=== PATIENT | female | born 1955 | race Caucasian/White ===

== ENCOUNTER 2017-08-11 07:42 | Day surgery (SDC) | payer MEDICARE, BC ==
[2017-08-11] MEDS ORDERED: fentaNYL 100 MCG/2 ML SDV ONE (08:10)
[2017-08-11] MEDS ORDERED: Midazolam 1 MG/ML 2 ML SDV ONE (08:10)
[2017-08-11] MEDS ORDERED: Propofol 200 MG/20 ML SDV ONE (08:10)
[2017-08-11] MEDS ORDERED: Lactated Ringers 1,000 ML IV SCH (08:15)
--- NOTE | 2017-08-11 11:38 | OR ---
DATE OF PROCEDURE: 08/11/2017 PREOPERATIVE DIAGNOSIS: Colon cancer screening. POSTOPERATIVE DIAGNOSIS: Diverticulosis. PROCEDURE: Colonoscopy to the cecum. SURGEON: Henry Stewart MD. ANESTHESIA: IV anesthesia with monitored anesthesia care. INDICATION: This 61-year-old white female is referred for a colonoscopy for colon cancer screening. Her last colonic exam sounds like a flexible sigmoidoscopy, done back in the . She has never had a full colonoscopy. I counseled her for the procedure , including the risks and alternatives, and she gave her informed consent to proceed. DESCRIPTION OF PROCEDURE: The patient was placed in a left lateral decubitus position. IV anesthesia was administered by the Anesthesia Service. Time-out was held. A rectal exam was performed, which was unremarkable. The flexible video Olympus colonoscope was introduced through her anus, up her rectum, and out her colon all the way to the cecum. En route, we saw a few scattered left-sided diverticula. There was no bleeding or inflammation associated with any of them. Once the cecum was reached, the scope was slowly withdrawn, examining the mucosa throughout. No additional mucosal abnormalities were noted. The scope was retroflexed in the rectum with the distal rectum appearing unremarkable. The scope was straightened and removed. She tolerated the procedure well. Henry Stewart MD /[id number] MTDD
[2017-08-11 11:39] VITALS: BP 155/90
== END 2017-08-11 11:45 | disposition home or self-care (01) ==
LOC: JP.SDS 07:42
PROVIDERS: ATTEND Surgery
DX: Z12.11 Encounter for screening for malignant neoplasm of colon (principal); K57.30 Diverticulosis of large intestine without perforation or abscess without bleeding; Z88.1 Allergy status to other antibiotic agents
CPT/HCPCS: G0121; J2250; J2704; J3010; J7120

== ENCOUNTER 2020-06-25 14:08 | Emergency (ER) | payer MEDICARE, BC ==
[2020-06-25 14:36] VITALS: BP 193/78; PULSE 81
--- NOTE | 2020-06-25 14:50 | EDM.PDOC ---
ED HPI GENERAL MEDICAL PROBLEM - General Chief Complaint: General Stated Complaint: UTI MEDICATION REACTION Time Seen by Provider: 06/25/20 14:45 Source of Information: Reports: Patient, Old Records, RN History Limitations: Reports: No Limitations - History of Present Illness INITIAL COMMENTS - FREE TEXT/NARRATIVE: 64 yo female was recently seen in the clinic and dx with a UTI and was prescribed cephalexin. She states that last night after taking this med she had some hallucinations and attributes these to this new med. She called the clinic and was told to come to the ER. Denies hallucination hx. Onset: Sudden Onset Date: 06/24/20 Duration: Hour(s):, Resolved Prior to Arrival Location: Reports: Head Quality: Reports: Other (no pain) Severity: Mild Improves with: Reports: Other (time) Worsens with: Reports: Other (? 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) - Related Data Allergies Allergy/AdvReac Type Severity Reaction Status Date / Time ciprofloxacin Allergy Cannot Verified 08/09/17 13:43 Remember minocycline Allergy Abdominal Verified 06/25/20 14:44 Cramps Home Meds: Home Meds Desvenlafaxine Succinate [Desvenlafaxine Succinate ER] 100 mg PO DAILY 08/09/17 [History] RX: Amphetamine/Dextroamphetamine [Adderall] 20 mg PO BID 08/09/17 [History] RX: Oxybutynin 5 mg PO BID 08/09/17 [History] RX: Pramipexole [Mirapex] 0.5 mg PO BEDTIME 08/09/17 [History] RX: Thyroid [[place] Thyroid] 30 mg PO DAILY 08/09/17 [History] RX: Zolpidem [Ambien] 10 mg PO BEDTIME 08/09/17 [History] traMADol HCl [Tramadol HCl] 50 mg PO Q6H PRN 11/07/19 [History] ARIPiprazole [Aripiprazole] 10 mg PO DAILY 06/25/20 [History] Losartan Potassium 100 mg PO DAILY 06/25/20 [History] Nebivolol [Bystolic] 5 mg PO DAILY 06/25/20 [History] Nitrofurantoin Monohyd/M-Cryst [Macrobid 100 mg Capsule] 100 mg PO Q12H #14 capsule 06/25/20 [Rx] RX: Venlafaxine [Effexor] 100 mg PO BID 06/25/20 [History] amLODIPine Besylate [Amlodipine Besylate] 10 mg PO BEDTIME 06/25/20 [History] risperiDONE 1 mg PO DAILY 06/25/20 [History] Past Medical History HEENT History: Reports: Impaired Vision Cardiovascular History: Reports: None Respiratory History: Reports: None Gastrointestinal History: Reports: Other (See Below) Other Gastrointestinal History: ulcers Genitourinary History: Reports: UTI, Recurrent 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 Musculoskeletal History: Reports: Back Pain, Chronic, Fracture Neurological History: Reports: None Psychiatric History: Reports: Depression, Psych Hospitalization(s), Schizophrenia Endocrine/Metabolic History: Reports: Hypothyroidism, Obesity/BMI 30+, Vitamin D Deficiency Hematologic History: Reports: B12 Deficiency Immunologic History: Reports: None Oncologic (Cancer) History: Reports: None - Infectious Disease History Infectious Disease History: Reports: Measles, Mumps - Past Surgical History HEENT Surgical History: Reports: None GI Surgical History: Reports: Bariatric Procedure, Cholecystectomy, Colonoscopy, EGD, Other (See Below) Other GI Surgeries/Procedures: hemorrhoidectomy Female Surgical History: Reports: Breast Implant Endocrine Surgical History: Reports: None Neurological Surgical History: Reports: Lumbar Spine Musculoskeletal Surgical History: Reports: Ganglion Cyst, Shoulder Surgery, Other (See Below) Other Musculoskeletal Surgeries/Procedures:: spinal fusion Dermatological Surgical History: Reports: None Social & Family History - Family History Family Medical History: Noncontributory - Caffeine Use Caffeine Use: Reports: None ED ROS GENERAL - Review of Systems Review Of Systems: See Below Constitutional: Reports: No Symptoms : Reports: Dysuria Skin: Reports: No Symptoms Neurological: Reports: No Symptoms Psychiatric: Reports: Hallucinations ED EXAM, GENERAL - Physical Exam Exam: See Below Exam Limited By: No Limitations General Appearance: Alert, WD/WN, No Apparent Distress Eye Exam: Bilateral Eye: Normal Inspection Ears: Normal External Exam, Normal Canal, Hearing Grossly Normal Ear Exam: Bilateral Ear: Auricle Normal, Canal Normal Nose: Normal Inspection, No Blood Throat/Mouth: Normal Inspection, Normal Lips, Normal Oropharynx, Normal Voice, No Airway Compromise Head: Atraumatic, Normocephalic Neck: Normal Inspection Respiratory/Chest: No Respiratory Distress, Lungs Clear, Normal Breath Sounds, No Accessory Muscle Use Cardiovascular: Regular Rate, Rhythm, No Edema Back Exam: No: CVA Tenderness (R), CVA Tenderness (L) Extremities: Normal Inspection Neurological: Alert, Oriented, CN II-XII Intact, Normal Cognition, No Motor/Sensory Deficits Psychiatric: Normal Affect, Normal Mood Skin Exam: Warm, Dry, Intact, Normal Color, No Rash Course - Vital Signs Last Recorded V/S: Last Vital Signs Temp 36.2 C 06/25/20 14:43 Pulse 81 06/25/20 14:43 Resp 16 06/25/20 14:43 BP 193/78 H 06/25/20 14:43 Pulse Ox 95 06/25/20 14:43 Departure - Departure Time of Disposition: 14:57 Disposition: Home, Self-Care 01 Condition: Good Clinical Impression: Medication side effect - Discharge Information *PRESCRIPTION DRUG MONITORING PROGRAM REVIEWED*: Not Applicable *COPY OF PRESCRIPTION DRUG MONITORING REPORT IN PATIENT MIN: Not Applicable Prescriptions: Nitrofurantoin Monohyd/M-Cryst [Macrobid 100 mg Capsule] 100 mg PO Q12H #14 capsule Referrals: Miriam Monte MD [Primary Care Provider] - Forms: ED Department Discharge Additional Instructions: Stop your cephalexin and substitute MacroBid. Recheck as needed. Sepsis Event Note (ED) - Evaluation Sepsis Screening Result: No Definite Risk - Focused Exam Vital Signs: Vital Signs Temp Pulse Resp BP Pulse Ox 06/25/20 14:43 36.2 C 81 16 193/78 H 95 06/25/20 14:35 36.2 C 81 16 193/78 H 95
== END 2020-06-25 15:12 | disposition home or self-care (01) ==
LOC: JP.ED 14:08
DX: T36.1X1A Poisoning by cephalosporins and other beta-lactam antibiotics, accidental (unintentional), initial encounter (principal); R44.3 Hallucinations, unspecified; F32.9 Major depressive disorder, single episode, unspecified; E03.9 Hypothyroidism, unspecified; E66.9 Obesity, unspecified; T36.8X5A Adverse effect of other systemic antibiotics, initial encounter; Z88.1 Allergy status to other antibiotic agents; Z68.41 Body mass index [BMI] 40.0-44.9, adult; Z79.899 Other long term (current) drug therapy
CPT/HCPCS: 99283

== ENCOUNTER 2020-10-17 06:26 | Day surgery (SDC) | payer MEDICARE, BC ==
[2020-10-17] MEDS ORDERED: fentaNYL 100 MCG/2 ML SDV ONE (07:26)
[2020-10-17] MEDS ORDERED: Propofol 200 MG/20 ML SDV ONE (07:26)
[2020-10-17] MEDS ORDERED: Midazolam 1 MG/ML 2 ML SDV ONE (07:27)
[2020-10-17] MEDS ORDERED: Dextrose 5%-Lactated Ringers 1,000 ML IV SCH (07:30)
[2020-10-17 09:10] VITALS: BP 129/55; PULSE 85
[2020-10-18 15:13] LABS: H. PYLORI BREATH TEST Negative (Negative)
--- NOTE | 2020-10-23 13:03 | OR ---
DATE OF PROCEDURE: 10/17/2020 SURGEON: Quinten Angel MD PREOPERATIVE DIAGNOSIS: Epigastric discomfort with history of Harvinder-en-Y gastric bypass. POSTOPERATIVE DIAGNOSIS: Essentially normal exam with only minimally scant gastric mucosa. OPERATIVE PROCEDURE: Upper gastrointestinal endoscopy with biopsies of gastric pouch for CLOtest. ANESTHESIA: IV sedation. INDICATION FOR PROCEDURE: A 65-year-old presenting with some ongoing epigastric discomfort and sense of some heartburn intermittently. Plan is to proceed with upper GI endoscopy with biopsies as indicated. The patient presently is on Pepcid 40 mg daily. She also has on her medication list amoxicillin and minocycline and was not sure whether or not this was associated with treatment of an H pylori infection at some point. At any rate, the patient is undergoing upper GI endoscopy with biopsies as indicated. Potential risks including bleeding and perforation were discussed, and the patient wishes to proceed. DETAILS OF PROCEDURE: The patient was taken to the operating room, placed in the left lateral decubitus position. IV sedation was administered. After which, the upper GI endoscope was passed orally through the length of the esophagus into the area of the gastrojejunostomy, and from there, roughly 20 cm into the Harvinder limb. Findings included normal esophagus and EG junction area. The patient had a very minimal amount of remaining gastric mucosa which was not significantly inflamed. There was no marginal ulcer present and no stricturing at the level of the gastrojejunostomy. The remaining portions of the Harvinder limb were unremarkable. There is no partial small bowel obstruction more distally. Biopsies were then obtained from the gastric mucosa and sent for CLOtest for H pylori. Minimal bleeding from biopsy sites was seen and the procedure was then concluded. The plan will be to have the patient continue on the Pepcid. We will obtain H pylori breath test as the amount of gastritis mucosa present at this location would often be a false- negative CLOtest, and it is possible she is having some gastritis in the bypassed portion of the stomach. She will be following up with Yessy Bishop DO in roughly 3 weeks. Quinten Angel MD /[id number]
== END 2020-10-17 10:00 | disposition home or self-care (01) ==
LOC: JP.SDS 06:26
PROVIDERS: ATTEND Surgery
DX: K31.89 Other diseases of stomach and duodenum (principal); G47.33 Obstructive sleep apnea (adult) (pediatric); Z98.84 Bariatric surgery status
CPT/HCPCS: 43239; 83013; 87081; J2250; J2704; J3010; J7121

== ENCOUNTER 2021-03-23 13:01 | Emergency (ER) | payer MEDICARE, BC ==
[2021-03-23 15:39] VITALS: BP 127/73; PULSE 66
--- NOTE | 2021-03-23 15:47 | EDM.PDOC ---
ED HPI GENERAL MEDICAL PROBLEM - General Chief Complaint: Genitourinary Problem Stated Complaint: UTI? Time Seen by Provider: 03/23/21 15:30 Source of Information: Reports: Patient, Old Records, RN History Limitations: Reports: No Limitations - History of Present Illness INITIAL COMMENTS - FREE TEXT/NARRATIVE: 65 yo female presents with chronic dizziness, not vertigo, that she has seen Dr. Bishop for. She has another appt with her this next . Sx's were a little worse today so came to the ER. Is currently being tx'd for a Klebsiella UTI with an antibiotic. Does not currently have dysuria. No bleeding or fever. Stools have been loose since taking the antibiotic. Onset: Gradual Duration: Week(s):, Chronic, Getting Worse Location: Reports: Head Quality: Reports: Other (no pain) Severity: Mild (dizziness) Improves with: Reports: Other (sitting or lying) - Related Data Allergies Allergy/AdvReac Type Severity Reaction Status Date / Time cephalexin Allergy Hallucinati Verified 03/23/21 15:00 ons ciprofloxacin Allergy Nausea Verified 03/23/21 15:00 minocycline Allergy Abdominal Verified 03/23/21 15:00 Cramps Home Meds: Home Meds Amphetamine/Dextroamphetamine [Adderall] 10 mg PO QID 08/09/17 [History] Thyroid [[place] Thyroid] 30 mg PO DAILY 08/09/17 [History] traMADol HCl [Tramadol HCl] 50 mg PO Q4H PRN 11/07/19 [History] Losartan Potassium 100 mg PO DAILY 06/25/20 [History] Nebivolol [Bystolic] 5 mg PO DAILY 06/25/20 [History] Nitrofurantoin Monohyd/M-Cryst [Macrobid 100 mg Capsule] 100 mg PO Q12H #14 capsule 06/25/20 [Rx] Venlafaxine [Effexor] 100 mg PO BID 06/25/20 [History] amLODIPine Besylate [Amlodipine Besylate] 10 mg PO BEDTIME 06/25/20 [History] risperiDONE 1 mg PO DAILY 06/25/20 [History] Calcium Carbonate/Vitamin D3 [Calcium 500 + Vit D 400] 0.5 tab PO DAILY 10/15/20 [History] Cyanocobalamin (Vitamin B-12) [B-12] 0.5 tab PO DAILY 10/15/20 [History] Magnesium Amino Acid Chelate [Magnesium] 100 mg PO BEDTIME 10/15/20 [History] Multivitamin 1 each PO BID 10/15/20 [History] Welsh-3/DHA/Epa/Fish Oil [Welsh 3 500 Softgel] 1,000 mg PO DAILY 10/15/20 [History] Sennosides/Docusate Sodium [Sennosides-Docusate Sodium] 1 tab PO BID 10/15/20 [History] Ubidecarenone [Co Q-10] 200 mg PO DAILY 10/15/20 [History] Minocycline [Minocin] 100 mg PO BID 10/17/20 [History] Eszopiclone [Lunesta] 3 mg PO BEDTIME 03/23/21 [History] Potassium Chloride 20 meq PO DAILY #10 tablet.er 03/23/21 [Rx] traZODone 150 mg PO BEDTIME 03/23/21 [History] Past Medical History HEENT History: Reports: Impaired Vision Cardiovascular History: Reports: Hypertension, SOB on Exertion Respiratory History: Reports: Sleep Apnea Gastrointestinal History: Reports: Chronic Diarrhea, GERD, Other (See Below) Other Gastrointestinal History: ulcers Genitourinary History: Reports: UTI, Recurrent 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 Musculoskeletal History: Reports: Back Pain, Chronic, Fracture Neurological History: Reports: None Psychiatric History: Reports: Anxiety, Depression, Psych Hospitalization(s), Schizophrenia Endocrine/Metabolic History: Reports: Hypothyroidism, Obesity/BMI 30+, Vitamin D Deficiency Hematologic History: Reports: B12 Deficiency Immunologic History: Reports: None Oncologic (Cancer) History: Reports: None Dermatologic History: Reports: None - Infectious Disease History Infectious Disease History: Reports: Chicken Pox, Measles, Mumps - Past Surgical History Head Surgeries/Procedures: Reports: None HEENT Surgical History: Reports: None Cardiovascular Surgical History: Reports: None Respiratory Surgical History: Reports: None GI Surgical History: Reports: Bariatric Procedure, Cholecystectomy, Colonoscopy, EGD, Other (See Below) Other GI Surgeries/Procedures: hemorrhoidectomy Female Surgical History: Reports: Breast Implant Endocrine Surgical History: Reports: None Neurological Surgical History: Reports: Lumbar Spine Musculoskeletal Surgical History: Reports: Ganglion Cyst, Shoulder Surgery, Other (See Below) Other Musculoskeletal Surgeries/Procedures:: spinal fusion Dermatological Surgical History: Reports: None Social & Family History - Family History Family Medical History: No Pertinent Family History - Tobacco Use Tobacco Use Status *Q: Never Tobacco User Second Hand Smoke Exposure: No - Caffeine Use Caffeine Use: Reports: Soda - Recreational Drug Use Recreational Drug Use: No ED ROS GENERAL - Review of Systems Review Of Systems: See Below Constitutional: Reports: No Symptoms HEENT: Reports: No Symptoms Respiratory: Reports: No Symptoms Cardiovascular: Reports: Lightheadedness Endocrine: Reports: No Symptoms GI/Abdominal: Reports: No Symptoms : Reports: No Symptoms Musculoskeletal: Reports: No Symptoms Skin: Reports: No Symptoms Neurological: Reports: No Symptoms Psychiatric: Reports: No Symptoms ED EXAM, GI/ABD - Physical Exam Exam: See Below Exam Limited By: No Limitations General Appearance: Alert, WD/WN, No Apparent Distress Eyes: Bilateral: Normal Appearance Ears: Normal External Exam, Normal Canal, Hearing Grossly Normal Nose: Normal Inspection, No Blood Throat/Mouth: Normal Inspection, Normal Lips, Normal Oropharynx, Normal Voice, No Airway Compromise Head: Atraumatic, Normocephalic Neck: Normal Inspection Respiratory/Chest: No Respiratory Distress, Lungs Clear, Normal Breath Sounds, No Accessory Muscle Use Cardiovascular: Regular Rate, Rhythm, No Edema GI/Abdominal Exam: Normal Bowel Sounds, Soft, Non-Tender, No Distention Back Exam: Normal Inspection. No: CVA Tenderness (R), CVA Tenderness (L) Extremities: Normal Inspection, Normal Range of Motion, Non-Tender, No Pedal Edema Neurological: Alert, Oriented, CN II-XII Intact, Normal Cognition, No Motor/Sensory Deficits Psychiatric: Normal Affect, Normal Mood Skin Exam: Warm, Dry, Intact, Normal Color, No Rash Course - Vital Signs Last Recorded V/S: Last Vital Signs Temp 36.2 C 03/23/21 15:10 Pulse 66 03/23/21 15:28 Resp 16 03/23/21 15:10 BP 127/73 03/23/21 15:28 Pulse Ox 97 03/23/21 15:28 Orthostatic Blood Pressure [ 111/69 Standing] Orthostatic Blood Pressure [ 113/67 Sitting] Orthostatic Blood Pressure [ 130/71 Supine] - Orders/Labs/Meds Orders: Active Orders 24 hr Category Date Time Status Orthostatic Vital Signs [RC] ASDIRECTED Care 03/23/21 15:36 Active Labs: Laboratory Tests 03/23/21 03/23/21 Range/Units 15:05 15:51 Sodium 135 L (140-148) mmol/L Potassium 3.2 L (3.6-5.2) mmol/L Chloride 100 (100-108) mmol/L Carbon Dioxide 19 L (21-32) mmol/L Anion Gap 19.2 H (5.0-14.0) mmol/L BUN 6 L (7-18) mg/dL Creatinine 0.9 (0.6-1.0) mg/dL Est Cr Clr Drug Dosing 52.38 mL/min Estimated GFR (MDRD) > 60 (>60) Glucose 105 (74-106) mg/dL Calcium 8.5 (8.5-10.1) mg/dL Urine Color Yellow (YELLOW) Urine Appearance Clear (CLEAR) Urine pH 6.0 (5.0-8.0) Ur Specific [place] 1.015 (1.008-1.030) Urine Protein Negative (NEGATIVE) mg/dL Urine Glucose (UA) Negative (NEGATIVE) mg/dL Urine Ketones Negative (NEGATIVE) mg/dL Urine Occult Blood Negative (NEGATIVE) Urine Nitrite Negative (NEGATIVE) Urine Bilirubin Negative (NEGATIVE) Urine Urobilinogen 0.2 (0.2-1.0) EU/dL Ur Leukocyte Esterase Negative (NEGATIVE) Urine RBC 0-5 (0-5) Urine WBC Not seen (0-5) Ur Epithelial Cells Rare Amorphous Sediment Rare Urine Bacteria Rare Urine Mucus Not seen Meds: Medications Discontinued Medications Generic Name Dose Route Start Last Admin Trade Name Freq PRN Reason Stop Dose Admin Potassium Chloride 40 meq 03/23/21 16:25 Potassium Chloride 20 Meq Tab.Er PO 03/23/21 16:26 ONETIME ONE Departure - Departure Time of Disposition: 16:35 Disposition: Home, Self-Care 01 Condition: Good Clinical Impression: Hypokalemia - Discharge Information *PRESCRIPTION DRUG MONITORING PROGRAM REVIEWED*: Not Applicable *COPY OF PRESCRIPTION DRUG MONITORING REPORT IN PATIENT MIN: Not Applicable Prescriptions: Potassium Chloride 20 meq PO DAILY #10 tablet.er Referrals: Yessy Bishop DO [Primary Care Provider] - Forms: ED Department Discharge Additional Instructions: Take potassium as directed. Continue your other mediations. F/U with your provider later this week. Eat more fresh fruit to help restore potassium levels. Sepsis Event Note (ED) - Focused Exam Vital Signs: Vital Signs Temp Pulse Resp BP Pulse Ox 03/23/21 15:28 66 127/73 97 03/23/21 15:10 36.2 C 67 16 119/70 97 - My Orders Last 24 Hours: My Active Orders 03/23/21 15:36 Orthostatic Vital Signs [RC] ASDIRECTED - Assessment/Plan Last 24 Hours: My Active Orders 03/23/21 15:36 Orthostatic Vital Signs [RC] ASDIRECTED
[2021-03-23] MEDS ORDERED: Potassium Chloride 20 MEQ Tab.ER PO ONE (16:25)
== END 2021-03-23 16:35 | disposition home or self-care (01) ==
LOC: JP.ED 13:01
DX: E87.6 Hypokalemia (principal); I10 Essential (primary) hypertension; E03.9 Hypothyroidism, unspecified; E66.9 Obesity, unspecified; Z68.35 Body mass index [BMI] 35.0-35.9, adult; Z88.1 Allergy status to other antibiotic agents; Z79.899 Other long term (current) drug therapy
CPT/HCPCS: 36415; 80048; 81001; 99283; 99284; A9270

== ENCOUNTER 2021-03-25 15:37 | Emergency (ER) | payer MEDICARE, BC ==
--- NOTE | 2021-03-25 17:04 | EDM.PDOC ---
ED HPI GENERAL MEDICAL PROBLEM - General Chief Complaint: General Stated Complaint: ELEVATED LIVER ENZYMES Time Seen by Provider: 03/25/21 17:02 Source of Information: Reports: Patient History Limitations: Reports: No Limitations - History of Present Illness INITIAL COMMENTS - FREE TEXT/NARRATIVE: pt had a bushra from the clinic that her liver enzymes are more elevated than usual and thet she is to have that checked out. Onset: Other ( call from the clinic today. ) Duration: Day(s): Location: Reports: Abdomen, Other (pt is having chronic nausea.) Associated Symptoms: Reports: Nausea/Vomiting, Other ( elevated liver enzymes. ) - Related Data Allergies Allergy/AdvReac Type Severity Reaction Status Date / Time cephalexin Allergy Hallucinati Verified 04/03/21 12:17 ons ciprofloxacin AdvReac Nausea Verified 04/03/21 16:54 minocycline AdvReac Abdominal Verified 04/03/21 16:54 Cramps Home Meds: Home Meds Thyroid [[place] Thyroid] 45 mg PO DAILY 08/09/17 [History] Losartan Potassium 100 mg PO DAILY 06/25/20 [History] Nebivolol [Bystolic] 5 mg PO DAILY 06/25/20 [History] Venlafaxine [Effexor] 100 mg PO BID 06/25/20 [History] amLODIPine Besylate [Amlodipine Besylate] 10 mg PO BEDTIME 06/25/20 [History] Magnesium Amino Acid Chelate [Magnesium] 100 mg PO BEDTIME 10/15/20 [History] Multivitamin 1 each PO DAILY 10/15/20 [History] [place]-3/DHA/Epa/Fish Oil [[place] 3 500 Softgel] 1,000 mg PO DAILY 10/15/20 [History] Ubidecarenone [Co Q-10] 200 mg PO DAILY 10/15/20 [History] traZODone 150 mg PO BEDTIME 03/23/21 [History] Calcium Citrate/Vitamin D3 [Calcium Citrate - Vit D Caplet] 1 each PO DAILY 04/01/21 [History] Cyanocobalamin/Cobamamide [B-12 5,000 MCG Sublingual] 5,000 mcg PO DAILY 04/03/21 [History] Iron,Carbonyl/Ascorbic Acid [Iron 100-Vitamin C Tablet] 1 tab PO DAILY 04/03/21 [History] Mv-Mn/Iron/Folic Acid/Herb 190 [Vitamin D3 Complete Caplet] 1 tab PO DAILY 04/03/21 [History] Omeprazole 1 tab PO DAILY 04/03/21 [History] Ondansetron [Zofran ODT] 1 tab PO Q8H PRN 04/03/21 [History] Potassium Gluconate 1 tab PO DAILY 04/03/21 [History] Pramipexole [Mirapex] 0.5 mg PO BEDTIME 04/03/21 [History] Promethazine [Phenergan] 25 mg PO Q6H PRN 04/03/21 [History] Selenium 1 tab PO DAILY 04/03/21 [History] Sennosides/Docusate Sodium [Stimulant Laxative Plus Tablet] 1 tab PO BID PRN 04/03/21 [History] Hydrocodone/Acetaminophen [Hydrocodon-Acetaminophen 5-325] 2 each PO Q4H PRN #60 tablet 04/07/21 [Rx] Amphetamine/Dextroamphetamine [Adderall] 20 mg PO BID #60 04/08/21 [Rx] Eszopiclone [Lunesta] 3 mg PO BEDTIME #30 04/08/21 [Rx] Past Medical History HEENT History: Reports: Impaired Vision Cardiovascular History: Reports: Hypertension, SOB on Exertion Respiratory History: Reports: Sleep Apnea, Other (See Below) Other Respiratory History: uses cpap Gastrointestinal History: Reports: Chronic Diarrhea, GERD, Other (See Below) Other Gastrointestinal History: ulcers Genitourinary History: Reports: UTI, Recurrent [employer] History: Reports: None Musculoskeletal History: Reports: Back Pain, Chronic, Fracture Neurological History: Reports: None Psychiatric History: Reports: Anxiety, Depression, Psych Hospitalization(s), Schizophrenia Endocrine/Metabolic History: Reports: Hypothyroidism, Obesity/BMI 30+, Vitamin D Deficiency Hematologic History: Reports: B12 Deficiency Immunologic History: Reports: None Oncologic (Cancer) History: Reports: None Dermatologic History: Reports: None - Infectious Disease History Infectious Disease History: Reports: Chicken Pox, Measles, Mumps - Past Surgical History Head Surgeries/Procedures: Reports: None HEENT Surgical History: Reports: None Cardiovascular Surgical History: Reports: None Respiratory Surgical History: Reports: None GI Surgical History: Reports: Bariatric Procedure, Cholecystectomy, Colonoscopy, EGD, Other (See Below) Other GI Surgeries/Procedures: hemorrhoidectomy Female Surgical History: Reports: Breast Implant Endocrine Surgical History: Reports: None Neurological Surgical History: Reports: Lumbar Spine Musculoskeletal Surgical History: Reports: Ganglion Cyst, Shoulder Surgery, Ot her (See Below) Other Musculoskeletal Surgeries/Procedures:: spinal fusion Dermatological Surgical History: Reports: None Social & Family History - Family History Family Medical History: No Pertinent Family History - Tobacco Use Tobacco Use Status *Q: Never Tobacco User - Caffeine Use Caffeine Use: Reports: Soda - Recreational Drug Use Recreational Drug Use: No ED ROS GENERAL - Review of Systems Review Of Systems: See Below Constitutional: Reports: No Symptoms HEENT: Reports: No Symptoms Respiratory: Reports: No Symptoms Cardiovascular: Reports: No Symptoms Endocrine: Reports: No Symptoms GI/Abdominal: Reports: Other (pt is very concerned about the elvation in her leiver enzymes. She is post RNY. ) Skin: Reports: No Symptoms ED EXAM, GENERAL - Physical Exam Exam: See Below Free Text/Narrative:: pt had a recent uti and her urine still has alot of bacteria. She had liver profile drawn at the clinic and pt is concerned regarding the elevation in the liver enzymes. Exam Limited By: No Limitations General Appearance: Alert, No Apparent Distress, Anxious Ears: Normal TMs Ear Exam: Right Ear: Erythema Nose: Normal Inspection Throat/Mouth: Normal Inspection Head: Atraumatic Neck: Normal Inspection Respiratory/Chest: No Respiratory Distress Cardiovascular: Regular Rate, Rhythm GI/Abdominal: Soft, Non-Tender (Female) Exam: Deferred Rectal (Female) Exam: Deferred Back Exam: Normal Inspection Extremities: Normal Inspection Course - Vital Signs Last Recorded V/S: Last Vital Signs Temp 35.5 C L 03/25/21 16:00 Pulse 72 03/25/21 18:03 Resp 12 03/25/21 18:03 BP 142/74 H 03/25/21 18:03 Pulse Ox 95 03/25/21 18:03 - Orders/Labs/Meds Labs: Laboratory Tests 03/25/21 03/25/21 03/25/21 Range/Units 17:01 17:02 17:09 Amylase 18 L (25-115) U/L Lipase 90 (73-393) U/L TSH, Ultra Sensitive 0.962 (0.358-3.740) uIU/mL Urine Color Yellow (YELLOW) Urine Appearance Clear (CLEAR) Urine pH 5.5 (5.0-8.0) Ur Specific [place] 1.020 (1.008-1.030) Urine Protein 30 H (NEGATIVE) mg/dL Urine Glucose (UA) Negative (NEGATIVE) mg/dL Urine Ketones Negative (NEGATIVE) mg/dL Urine Occult Blood Negative (NEGATIVE) Urine Nitrite Negative (NEGATIVE) Urine Bilirubin Negative (NEGATIVE) Urine Urobilinogen 0.2 (0.2-1.0) EU/dL Ur Leukocyte Esterase Negative (NEGATIVE) Urine RBC 0-5 (0-5) Urine WBC 0-5 (0-5) Ur Epithelial Cells Moderate Amorphous Sediment Not seen Urine Bacteria Moderate Urine Mucus Few Urine Other - Re-Assessments/Exams Free Text/Narrative Re-Assessment/Exam: 03/25/21 18:24 pt had a amylase which was normal. She had a urine culture set up. she will go back to Dr Bishop to discuss the liver enzyme elevation. She is post RNY Departure - Departure Time of Disposition: 18:19 Disposition: Home, Self-Care 01 Condition: Fair Clinical Impression: Elevated liver enzymes UTI (urinary tract infection) Qualifiers: Urinary tract infection type: site unspecified Hematuria presence: without hematuria Qualified Code(s): N39.0 - Urinary tract infection, site not specified - Discharge Information Instructions: Liver Function Tests, Urinary Tract Infection, Adult, [id number] Referrals: Yessy Bishop DO [Primary Care Provider] - Forms: ED Department Discharge Care Plan Goals: pt was reaured the the liver enzyme elevation was not emergent. She will see Dr Bishop to review this with the pt. A urine culture is pending. Sepsis Event Note (ED) - Evaluation Sepsis Screening Result: No Definite Risk
[2021-03-25 18:04] VITALS: BP 142/74; PULSE 72
== END 2021-03-25 18:29 | disposition home or self-care (01) ==
LOC: JP.ED 15:37
DX: N39.0 Urinary tract infection, site not specified (principal); R74.8 Abnormal levels of other serum enzymes; I10 Essential (primary) hypertension; K21.9 Gastro-esophageal reflux disease without esophagitis; E03.9 Hypothyroidism, unspecified; E66.9 Obesity, unspecified; Z68.35 Body mass index [BMI] 35.0-35.9, adult; Z79.899 Other long term (current) drug therapy; Z88.1 Allergy status to other antibiotic agents; Z88.8 Allergy status to other drugs, medicaments and biological substances
CPT/HCPCS: 36415; 81001; 82150; 83690; 84443; 87086; 87088; 87186; 99283

== ENCOUNTER 2021-03-28 15:26 | Emergency (ER) | payer MEDICARE, BC ==
[2021-03-28 16:16] VITALS: BP 148/69; PULSE 101
[2021-03-28] MEDS ORDERED: Sodium Chloride 0.9% 10 ML Syringe FLUSH PRN (17:12)
[2021-03-28] MEDS ORDERED: Ondansetron 4 MG/2 ML SDV IVPUSH ONE (17:13)
[2021-03-28] MEDS ORDERED: Lactated Ringers 1,000 ML IV SCH (17:15)
--- NOTE | 2021-03-28 17:17 | EDM.PDOC ---
ED HPI GENERAL MEDICAL PROBLEM - General Chief Complaint: General Stated Complaint: ENZYMES OFF/FATIGUED Time Seen by Provider: 03/28/21 17:06 Source of Information: Reports: Patient, Provider, RN Notes Reviewed History Limitations: Reports: No Limitations - History of Present Illness INITIAL COMMENTS - FREE TEXT/NARRATIVE: 65-year-old female presents emergency department today sent over from clinic for further evaluation, per discussion with clinic provider she does have a history of elevated liver enzymes AST around 200 she does have a known history of schizophrenia as well currently not taking her medications recent diagnosis of urinary tract infection also not taking medication for that. Clinic provider asked for further evaluation blood work and fluids to be provided in the ED which she could not order in the clinic in a timely manner. Recently evaluated in the emergency department on 03/25 for same complaint Left Hip Pain Score (Numeric/FACES): 8 - Related Data Allergies Allergy/AdvReac Type Severity Reaction Status Date / Time cephalexin Allergy Hallucinati Verified 03/25/21 15:47 ons ciprofloxacin Allergy Nausea Verified 03/25/21 15:47 minocycline Allergy Abdominal Verified 03/25/21 15:47 Cramps Home Meds: Home Meds Amphetamine/Dextroamphetamine [Adderall] 10 mg PO QID 08/09/17 [History] Thyroid [[place] Thyroid] 30 mg PO DAILY 08/09/17 [History] traMADol HCl [Tramadol HCl] 50 mg PO Q4H PRN 11/07/19 [History] Losartan Potassium 100 mg PO DAILY 06/25/20 [History] Nebivolol [Bystolic] 5 mg PO DAILY 06/25/20 [History] Venlafaxine [Effexor] 100 mg PO BID 06/25/20 [History] amLODIPine Besylate [Amlodipine Besylate] 10 mg PO BEDTIME 06/25/20 [History] risperiDONE 1 mg PO DAILY 06/25/20 [History] Calcium Carbonate/Vitamin D3 [Calcium 500 + Vit D 400] 0.5 tab PO DAILY 10/15/20 [History] Cyanocobalamin (Vitamin B-12) [B-12] 0.5 tab PO DAILY 10/15/20 [History] Magnesium Amino Acid Chelate [Magnesium] 100 mg PO BEDTIME 10/15/20 [History] Multivitamin 1 each PO BID 10/15/20 [History] [place]-3/DHA/Epa/Fish Oil [[place] 3 500 Softgel] 1,000 mg PO DAILY 10/15/20 [History] Sennosides/Docusate Sodium [Sennosides-Docusate Sodium] 1 tab PO BID 10/15/20 [History] Ubidecarenone [Co Q-10] 200 mg PO DAILY 10/15/20 [History] Eszopiclone [Lunesta] 3 mg PO BEDTIME 03/23/21 [History] Potassium Chloride 20 meq PO DAILY #10 tablet.er 03/23/21 [Rx] traZODone 150 mg PO BEDTIME 03/23/21 [History] Sulfamethoxazole/Trimethoprim [Bactrim 400-80 MG] 1 each PO BID #6 tablet 03/28/21 [Rx] Past Medical History HEENT History: Reports: Impaired Vision Cardiovascular History: Reports: Hypertension, SOB on Exertion Respiratory History: Reports: Sleep Apnea, Other (See Below) Other Respiratory History: uses cpap Gastrointestinal History: Reports: Chronic Diarrhea, GERD, Other (See Below) Other Gastrointestinal History: ulcers Genitourinary History: Reports: UTI, Recurrent [employer] History: Reports: None Musculoskeletal History: Reports: Back Pain, Chronic, Fracture Psychiatric History: Reports: Anxiety, Depression, Psych Hospitalization(s), Schizophrenia Endocrine/Metabolic History: Reports: Hypothyroidism, Obesity/BMI 30+, Vitamin D Deficiency Hematologic History: Reports: B12 Deficiency Immunologic History: Reports: None Oncologic (Cancer) History: Reports: None Dermatologic History: Reports: None - Infectious Disease History Infectious Disease History: Reports: Chicken Pox, Measles, Mumps - Past Surgical History Head Surgeries/Procedures: Reports: None HEENT Surgical History: Reports: None Cardiovascular Surgical History: Reports: None Respiratory Surgical History: Reports: None GI Surgical History: Reports: Bariatric Procedure, Cholecystectomy, Colonoscopy, EGD, Other (See Below) Other GI Surgeries/Procedures: hemorrhoidectomy Female Surgical History: Reports: Breast Implant Endocrine Surgical History: Reports: None Neurological Surgical History: Reports: Lumbar Spine Musculoskeletal Surgical History: Reports: Ganglion Cyst, Shoulder Surgery, Other (See Below) Other Musculoskeletal Surgeries/Procedures:: spinal fusion Dermatological Surgical History: Reports: None Social & Family History - Family History Family Medical History: No Pertinent Family History - Tobacco Use Tobacco Use Status *Q: Never Tobacco User - Caffeine Use Caffeine Use: Reports: Soda - Recreational Drug Use Recreational Drug Use: No ED ROS GENERAL - Review of Systems Review Of Systems: See Below Constitutional: Reports: No Symptoms HEENT: Reports: No Symptoms Respiratory: Reports: No Symptoms Cardiovascular: Reports: No Symptoms GI/Abdominal: Reports: No Symptoms : Reports: No Symptoms Musculoskeletal: Reports: No Symptoms Neurological: Reports: No Symptoms Psychiatric: Reports: Anxiety ED EXAM, GENERAL - Physical Exam Exam: See Below Exam Limited By: No Limitations General Appearance: Alert, Anxious Respiratory/Chest: No Respiratory Distress, Lungs Clear, Normal Breath Sounds, No Accessory Muscle Use, Chest Non-Tender Cardiovascular: Regular Rate, Rhythm, No Murmur GI/Abdominal: Soft, Non-Tender Extremities: No Pedal Edema Course - Vital Signs Last Recorded V/S: Last Vital Signs Temp 98 F 03/28/21 16:15 Pulse 101 H 03/28/21 16:15 Resp 18 03/28/21 16:15 BP 148/69 H 03/28/21 16:15 Pulse Ox 100 03/28/21 16:15 - Orders/Labs/Meds Orders: Active Orders 24 hr Category Date Time Status Peripheral IV Care [RC] . DIRECTED Care 03/28/21 17:12 Active UA W/MICROSCOPIC [URIN] Urgent Lab 03/28/21 17:12 Ordered Sodium Chloride 0.9% [Saline Flush] Med 03/28/21 17:12 Active 10 ml FLUSH ASDIRECTED PRN Peripheral IV Insertion Adult [OM.PC] Urgent Oth 03/28/21 17:12 Ordered Medication Orders Sodium Chloride (Sodium Chloride 0.9% 10 Ml Syringe) 10 ml FLUSH ASDIRECTED PRN PRN Reason: Keep Vein Open Labs: Laboratory Tests 03/28/21 03/28/21 03/28/21 Range/Units 17:26 17:26 17:26 WBC 9.1 (4.5-11.0) K/uL RBC 3.76 (3.30-5.50) M/uL Hgb 11.6 L (12.0-15.0) g/dL Hct 34.4 L (36.0-48.0) % MCV 92 (80-98) fL MCH 31 (27-31) pg MCHC 34 (32-36) % Plt Count 697 H (150-400) K/uL Neut % (Auto) 58.7 (36-66) % Lymph % (Auto) 28.9 (24-44) % [place] % (Auto) 8.4 H (2-6) % Eos % (Auto) 3.5 (2-4) % Baso % (Auto) 0.5 (0-1) % Sodium 136 L (140-148) mmol/L Potassium 4.6 (3.6-5.2) mmol/L Chloride 101 (100-108) mmol/L Carbon Dioxide 17 L (21-32) mmol/L Anion Gap 22.6 H (5.0-14.0) mmol/L BUN 7 (7-18) mg/dL Creatinine 1.0 (0.6-1.0) mg/dL Est Cr Clr Drug Dosing 47.14 mL/min Estimated GFR (MDRD) 55 L (>60) Glucose 98 (74-106) mg/dL Lactic Acid 1.4 (0.4-2.0) mmol/L Calcium 8.9 (8.5-10.1) mg/dL Total Bilirubin 0.8 (0.2-1.0) mg/dL AST 53 H (15-37) U/L ALT 116 H (12-78) U/L Alkaline Phosphatase 178 H (46-116) U/L Troponin I < 0.017 (0.000-0.056) ng/mL Total Protein 5.5 L (6.4-8.2) g/dL Albumin 2.7 L (3.4-5.0) g/dL Globulin 2.8 (2.3-3.5) g/dL Albumin/Globulin Ratio 1.0 L (1.2-2.2) Lipase 296 (73-393) U/L Meds: Medications Generic Name Dose Route Start Last Admin Trade Name Freq PRN Reason Stop Dose Admin Sodium Chloride 10 ml 03/28/21 17:12 Sodium Chloride 0.9% 10 Ml Syringe FLUSH ASDIRECTED PRN Keep Vein Open Discontinued Medications Generic Name Dose Route Start Last Admin Trade Name Freq PRN Reason Stop Dose Admin Lactated Ringer's 1,000 mls @ 999 mls/hr 03/28/21 17:15 Ringers, Lactated IV ASDIRECTED MO Ondansetron HCl 4 mg 03/28/21 17:13 Ondansetron 4 Mg/2 Ml Sdv IVPUSH 03/28/21 17:14 ONETIME ONE Departure - Departure Time of Disposition: 18:16 Disposition: Home, Self-Care 01 Condition: Poor Clinical Impression: Elevated liver enzymes UTI (urinary tract infection) Qualifiers: Urinary tract infection type: site unspecified Hematuria presence: without hematuria Qualified Code(s): N39.0 - Urinary tract infection, site not specified - Discharge Information Instructions: Urinary Tract Infection, Adult Referrals: Yessy Bishop DO [Primary Care Provider] - Forms: ED Department Discharge Additional Instructions: Take full course of antibiotics, please followup with your primary care provider in 3-5 days if not better, please call return to the emergency department with worsening of symptoms. Sepsis Event Note (ED) - Evaluation Sepsis Screening Result: No Definite Risk - Focused Exam Vital Signs: Vital Signs Temp Pulse Resp BP Pulse Ox 03/28/21 16:15 98 F 101 H 18 148/69 H 100 03/28/21 16:11 97.4 F - My Orders Last 24 Hours: My Active Orders 03/28/21 17:12 Peripheral IV Care [RC] . DIRECTED UA W/MICROSCOPIC [URIN] Urgent Sodium Chloride 0.9% [Saline Flush] 10 ml FLUSH ASDIRECTED PRN Peripheral IV Insertion Adult [OM.PC] Urgent - Assessment/Plan Last 24 Hours: My Active Orders 03/28/21 17:12 Peripheral IV Care [RC] . DIRECTED UA W/MICROSCOPIC [URIN] Urgent Sodium Chloride 0.9% [Saline Flush] 10 ml FLUSH ASDIRECTED PRN Peripheral IV Insertion Adult [OM.PC] Urgent Plan: Assessment Acuity = acute Site and laterality = urinary urinary tract infection with elevated liver enzymes complicated by schizophrenia Etiology = probable bacterial cause for the urinary tract infection unknown reason for elevated liver enzymes Manifestations = none Location of injury = Home Lab values = CBC unremarkable AST slightly elevated 53 ALT elevated 116 albumin low 2.7 consistent hypoalbuminemia Plan I did review lab work with her she is going to continue to follow-up with her primary care for further evaluation of elevated liver enzymes as she states she has urinary tract infection but has not received antibiotics for this this was also confirmed with by her primary care provider last year and I have here is not consistent with a urinary tract infection however does show many bacteria I elected to treat empirically with Bactrim DS 1 tab p.o. twice daily x3 days she was unable to provide a urine sample while emergency department This note was dictated using [employer] voice recognition software please call with any questions on syntax or grammar.
== END 2021-03-28 18:36 | disposition home or self-care (01) ==
LOC: JP.ED 15:26
DX: N39.0 Urinary tract infection, site not specified (principal); R79.89 Other specified abnormal findings of blood chemistry; I10 Essential (primary) hypertension; E66.9 Obesity, unspecified; Z68.30 Body mass index [BMI] 30.0-30.9, adult; Z79.899 Other long term (current) drug therapy; Z88.1 Allergy status to other antibiotic agents
CPT/HCPCS: 36415; 80053; 83605; 83690; 84484; 85025; 99283

== ENCOUNTER 2021-04-03 12:06 | Inpatient (IN) | payer MEDICARE, BC ==
--- NOTE | 2021-04-03 13:13 | EDM.PDOC ---
ED HPI GENERAL MEDICAL PROBLEM - General Chief Complaint: General Stated Complaint: MEDICAL [facility]IA [facility] Time Seen by Provider: 04/03/21 12:30 Source of Information: Reports: Patient History Limitations: Reports: No Limitations - History of Present Illness INITIAL COMMENTS - FREE TEXT/NARRATIVE: 65-year-old female brought in by EMS for the fourth time this month due to weakness, inability to care for self, hypotension. EMS arrived at her house and she was laying in bed soaked in urine, there was a 5 gallon pail she is complaining of back and left shoulder discomfort, she is being followed by Ortho full of feces next to the bed. It is unsure if she is eating or not. She is being followed by orthopedics for her shoulder fracture. She was just seen in the emergency room 2 days ago when she was hypotensive in the orthopedic clinic during a recheck. According to the patient she has been too weak to walk for the past 2 days, can't even get out of bed on her own. Onset: Unknown/Unsure Improves with: Reports: None Worsens with: Reports: None Associated Symptoms: Reports: Malaise, Weakness. Denies: Confusion, Chest Pain, Cough, Nausea/Vomiting, Shortness of Breath - Related Data Allergies Allergy/AdvReac Type Severity Reaction Status Date / Time cephalexin Allergy Hallucinati Verified 04/03/21 12:17 ons ciprofloxacin AdvReac Nausea Verified 04/03/21 16:54 minocycline AdvReac Abdominal Verified 04/03/21 16:54 Cramps Home Meds: Home Meds Amphetamine/Dextroamphetamine [Adderall] 10 mg PO QID 08/09/17 [History] Thyroid [Aurelia Thyroid] 45 mg PO DAILY 08/09/17 [History] traMADol HCl [Tramadol HCl] 50 mg PO Q4H PRN 11/07/19 [History] Losartan Potassium 100 mg PO DAILY 06/25/20 [History] Nebivolol [Bystolic] 5 mg PO DAILY 06/25/20 [History] Venlafaxine [Effexor] 100 mg PO BID 06/25/20 [History] amLODIPine Besylate [Amlodipine Besylate] 10 mg PO BEDTIME 06/25/20 [History] risperiDONE 1 mg PO DAILY 06/25/20 [History] Cyanocobalamin (Vitamin B-12) [B-12] 0.5 tab PO DAILY 10/15/20 [History] Magnesium Amino Acid Chelate [Magnesium] 100 mg PO BEDTIME 10/15/20 [History] Multivitamin 1 each PO BID 10/15/20 [History] [place]-3/DHA/Epa/Fish Oil [[place] 3 500 Softgel] 1,000 mg PO DAILY 10/15/20 [History] Sennosides/Docusate Sodium [Sennosides-Docusate Sodium] 1 tab PO BID 10/15/20 [History] Ubidecarenone [Co Q-10] 200 mg PO DAILY 10/15/20 [History] Eszopiclone [Lunesta] 3 mg PO BEDTIME 03/23/21 [History] Potassium Chloride 20 meq PO DAILY #10 tablet.er 03/23/21 [Rx] traZODone 150 mg PO BEDTIME 03/23/21 [History] Calcium Citrate/Vitamin D3 [Calcium Citrate - Vit D Caplet] 1 each PO DAILY 04/01/21 [History] Past Medical History HEENT History: Reports: Impaired Vision Cardiovascular History: Reports: Hypertension, SOB on Exertion Respiratory History: Reports: Sleep Apnea, Other (See Below) Other Respiratory History: uses cpap hasnt been using it (03/28) Gastrointestinal History: Reports: Chronic Diarrhea, GERD, Other (See Below) Other Gastrointestinal History: ulcers Genitourinary History: Reports: UTI, Recurrent [employer] History: Reports: None Musculoskeletal History: Reports: Back Pain, Chronic, Fracture Other Musculoskeletal History: L proximal humerus Fx 03/12/21 Neurological History: Reports: None Psychiatric History: Reports: Anxiety, Depression, Psych Hospitalization(s), Schizophrenia Endocrine/Metabolic History: Reports: Hypothyroidism, Obesity/BMI 30+, Vitamin D Deficiency Hematologic History: Reports: B12 Deficiency Immunologic History: Reports: None Oncologic (Cancer) History: Reports: None Dermatologic History: Reports: None - Infectious Disease History Infectious Disease History: Reports: Chicken Pox, Measles, Mumps, Novel Coronavirus - Past Surgical History Head Surgeries/Procedures: Reports: None HEENT Surgical History: Reports: None Cardiovascular Surgical History: Reports: None Respiratory Surgical History: Reports: None GI Surgical History: Reports: Bariatric Procedure, Cholecystectomy, Colonoscopy, EGD, Other (See Below) Other GI Surgeries/Procedures: hemorrhoidectomy Female Surgical History: Reports: Breast Implant Endocrine Surgical History: Reports: None Neurological Surgical History: Reports: Lumbar Spine Musculoskeletal Surgical History: Reports: Ganglion Cyst, Shoulder Surgery, Other (See Below) Other Musculoskeletal Surgeries/Procedures:: spinal fusion Dermatological Surgical History: Reports: None Social & Family History - Family History Family Medical History: No Pertinent Family History - Caffeine Use Caffeine Use: Reports: Coffee ED ROS GENERAL - Review of Systems Review Of Systems: See Below Constitutional: Reports: Malaise. Denies: Fever, Chills HEENT: Denies: Vision Change Respiratory: Denies: Shortness of Breath, Cough Cardiovascular: Denies: Chest Pain GI/Abdominal: Denies: Abdominal Pain, Nausea, Vomiting Musculoskeletal: Reports: Shoulder Pain (Left side), Back Pain Skin: Reports: Pallor Neurological: Reports: Weakness ED EXAM, GENERAL - Physical Exam Exam: See Below Exam Limited By: No Limitations General Appearance: Alert, No Apparent Distress, Other (Looks dry, pale) Eye Exam: Bilateral Eye: EOMI Head: Atraumatic Neck: Non-Tender Respiratory/Chest: No Respiratory Distress Cardiovascular: Regular Rate, Rhythm. No: Tachycardia GI/Abdominal: Soft, Non-Tender Extremities: Other (Very tender to any palpation around the left shoulder, some weakness of the lower extremities holding up against gravity, symmetric) Neurological: Alert, Oriented, Other (Diffuse weakness, no asymmetry) Skin Exam: Warm, Dry, Other (Appears pale) Course - Vital Signs Last Recorded V/S: Last Vital Signs Temp 94.5 F L 04/03/21 12:34 Pulse 88 04/03/21 16:00 Resp 13 04/03/21 16:00 BP 107/75 04/03/21 16:00 Pulse Ox 98 04/03/21 12:34 - Orders/Labs/Meds Orders: Active Orders 24 hr Category Date Time Status CULTURE URINE [RM] Stat Lab 04/03/21 13:40 Received Medication Orders Acetaminophen (Acetaminophen 325 Mg Tab) 650 mg PO Q4H PRN PRN Reason: Pain (Mild 1-3)/fever Hydrocodone Bitart/Acetaminophen (Acetaminophen/Hydrocodone 325-5 Mg Tab) 2 tab PO Q4H PRN PRN Reason: Pain (moderate 4-6) Enoxaparin Sodium (Enoxaparin 40 Mg/0.4 Ml Syringe) 40 mg SUBCUT Q24H MO Sodium Chloride (Normal Saline) 1,000 mls @ 125 mls/hr IV ASDIRECTED MO Ondansetron HCl (Ondansetron 4 Mg/2 Ml Sdv) 4 mg IV Q4H PRN PRN Reason: Nausea/Vomiting Polyethylene Glycol (Polyethylene Glycol 3350 Powder 17 Gm Packet) 17 gm PO DAILY PRN PRN Reason: Constipation Sodium Chloride (Sodium Chloride 0.9% 10 Ml Syringe) 10 ml FLUSH ASDIRECTED PRN PRN Reason: Keep Vein Open Labs: Laboratory Tests 04/03/21 04/03/21 04/03/21 Range/Units 12:53 13:05 13:05 WBC 12.8 H (4.5-11.0) K/uL RBC 3.47 (3.30-5.50) M/uL Hgb 11.0 L (12.0-15.0) g/dL Hct 31.6 L (36.0-48.0) % MCV 91 (80-98) fL MCH 32 H (27-31) pg MCHC 35 (32-36) % Plt Count 571 H (150-400) K/uL Neut % (Auto) 84.1 H (36-66) % Lymph % (Auto) 7.3 L (24-44) % [place] % (Auto) 7.6 H (2-6) % Eos % (Auto) 0.9 L (2-4) % Baso % (Auto) 0.1 (0-1) % Sodium 135 L (140-148) mmol/L Potassium 3.9 (3.6-5.2) mmol/L Chloride 99 L (100-108) mmol/L Carbon Dioxide 19 L (21-32) mmol/L Anion Gap 20.9 H (5.0-14.0) mmol/L BUN 9 (7-18) mg/dL Creatinine 1.0 (0.6-1.0) mg/dL Est Cr Clr Drug Dosing 47.14 mL/min Estimated GFR (MDRD) 55 L (>60) Glucose 90 (74-106) mg/dL Lactic Acid (0.4-2.0) mmol/L Calcium 8.6 (8.5-10.1) mg/dL Total Bilirubin 0.7 (0.2-1.0) mg/dL AST 30 (15-37) U/L ALT 61 (12-78) U/L Alkaline Phosphatase 170 H (46-116) U/L Creatine Kinase 93 (26-192) U/L Total Protein 5.1 L (6.4-8.2) g/dL Albumin 2.4 L (3.4-5.0) g/dL Globulin 2.7 (2.3-3.5) g/dL Albumin/Globulin Ratio 0.9 L (1.2-2.2) Urine Color Yellow (YELLOW) Urine Appearance Clear (CLEAR) Urine pH 6.0 (5.0-8.0) Ur Specific [place] 1.015 (1.008-1.030) Urine Protein Negative (NEGATIVE) mg/dL Urine Glucose (UA) Negative (NEGATIVE) mg/dL Urine Ketones Negative (NEGATIVE) mg/dL Urine Occult Blood Negative (NEGATIVE) Urine Nitrite Positive H (NEGATIVE) Urine Bilirubin Negative (NEGATIVE) Urine Urobilinogen 0.2 (0.2-1.0) EU/dL Ur Leukocyte Esterase Negative (NEGATIVE) Urine RBC Not seen (0-5) Urine WBC 0-5 (0-5) Ur Epithelial Cells Few Amorphous Sediment Rare Urine Bacteria Many Urine Mucus Not seen 04/03/21 Range/Units 13:05 WBC (4.5-11.0) K/uL RBC (3.30-5.50) M/uL Hgb (12.0-15.0) g/dL Hct (36.0-48.0) % MCV (80-98) fL MCH (27-31) pg MCHC (32-36) % Plt Count (150-400) K/uL Neut % (Auto) (36-66) % Lymph % (Auto) (24-44) % [place] % (Auto) (2-6) % Eos % (Auto) (2-4) % Baso % (Auto) (0-1) % Sodium (140-148) mmol/L Potassium (3.6-5.2) mmol/L Chloride (100-108) mmol/L Carbon Dioxide (21-32) mmol/L Anion Gap (5.0-14.0) mmol/L BUN (7-18) mg/dL Creatinine (0.6-1.0) mg/dL Est Cr Clr Drug Dosing mL/min Estimated GFR (MDRD) (>60) Glucose (74-106) mg/dL Lactic Acid 1.1 (0.4-2.0) mmol/L Calcium (8.5-10.1) mg/dL Total Bilirubin (0.2-1.0) mg/dL AST (15-37) U/L ALT (12-78) U/L Alkaline Phosphatase (46-116) U/L Creatine Kinase (26-192) U/L Total Protein (6.4-8.2) g/dL Albumin (3.4-5.0) g/dL Globulin (2.3-3.5) g/dL Albumin/Globulin Ratio (1.2-2.2) Urine Color (YELLOW) Urine Appearance (CLEAR) Urine pH (5.0-8.0) Ur Specific [place] (1.008-1.030) Urine Protein (NEGATIVE) mg/dL Urine Glucose (UA) (NEGATIVE) mg/dL Urine Ketones (NEGATIVE) mg/dL Urine Occult Blood (NEGATIVE) Urine Nitrite (NEGATIVE) Urine Bilirubin (NEGATIVE) Urine Urobilinogen (0.2-1.0) EU/dL Ur Leukocyte Esterase (NEGATIVE) Urine RBC (0-5) Urine WBC (0-5) Ur Epithelial Cells Amorphous Sediment Urine Bacteria Urine Mucus Meds: Medications Generic Name Dose Route Start Last Admin Trade Name Freq PRN Reason Stop Dose Admin Acetaminophen 650 mg 04/03/21 16:49 Acetaminophen 325 Mg Tab PO Q4H PRN Pain (Mild 1-3)/fever Hydrocodone Bitart/Acetaminophen 2 tab 04/03/21 16:49 Acetaminophen/Hydrocodone 325-5 Mg Tab PO Q4H PRN Pain (moderate 4-6) Enoxaparin Sodium 40 mg 04/03/21 17:30 Enoxaparin 40 Mg/0.4 Ml Syringe SUBCUT Q24H MO Sodium Chloride 1,000 mls @ 125 mls/hr 04/03/21 16:49 Normal Saline IV ASDIRECTED MO Ondansetron HCl 4 mg 04/03/21 16:49 Ondansetron 4 Mg/2 Ml Sdv IV Q4H PRN Nausea/Vomiting Polyethylene Glycol 17 gm 04/03/21 16:49 Polyethylene Glycol 3350 Powder 17 Gm Packet PO DAILY PRN Constipation Sodium Chloride 10 ml 04/03/21 16:49 Sodium Chloride 0.9% 10 Ml Syringe FLUSH ASDIRECTED PRN Keep Vein Open Discontinued Medications Generic Name Dose Route Start Last Admin Trade Name Freq PRN Reason Stop Dose Admin Fentanyl 50 mcg 04/03/21 13:23 04/03/21 13:28 Fentanyl 100 Mcg/2 Ml Sdv IVPUSH 04/03/21 13:24 50 mcg ONETIME ONE Administration Fentanyl 50 mcg 04/03/21 15:19 04/03/21 15:26 Fentanyl 100 Mcg/2 Ml Sdv IVPUSH 04/03/21 15:20 50 mcg ONETIME ONE Administration Ceftriaxone Sodium 1 gm/ 50 mls @ 100 mls/hr 04/03/21 14:30 04/03/21 14:27 Sodium Chloride IV 04/03/21 14:59 100 mls/hr ONETIME ONE Administration - Re-Assessments/Exams Free Text/Narrative Re-Assessment/Exam: 04/03/21 13:15 A straight cath UA will be obtained as well as a CBC CMP lactic acid and CK. She may need admission as she is unable to care for herself and will be a disposition issue likely needing rehabilitation in a longterm or similar facility. 04/03/21 13:47 White count is mildly elevated, hemoglobin 11.0. UA shows positive nitrate and bacteria but no WBCs, culture was ordered and the patient will be given 1 g of IV Rocephin. Dr. Felix was consulted for admission for UTI, generalized weakness and unable to care for self on an outpatient basis. Departure - Departure Time of Disposition: 16:59 Disposition: Admitted As Inpatient 64 Clinical Impression: Generalized weakness, UTI, Urinary tract infectious disease Closed left humeral fracture Qualifiers: Encounter type: subsequent encounter Humerus Location: surgical neck - Discharge Information Sepsis Event Note (ED) - Evaluation Sepsis Screening Result: No Definite Risk - Focused Exam Vital Signs: Vital Signs Temp Pulse Resp BP Pulse Ox 04/03/21 12:34 94.5 F L 85 13 135/65 98 04/03/21 12:23 94.5 F L 85 13 135/65 98 - My Orders Last 24 Hours: My Active Orders 04/03/21 13:40 CULTURE URINE [RM] Stat - Assessment/Plan Last 24 Hours: My Active Orders 04/03/21 13:40 CULTURE URINE [RM] Stat
[2021-04-03] MEDS ORDERED: fentaNYL 100 MCG/2 ML SDV IVPUSH ONE ×2 (13:23→15:19)
[2021-04-03] MEDS ORDERED: cefTRIAXone 1 GM in Sodium Chloride 0.9% 50 ML IV ONE ×2 (13:41→14:30)
--- NOTE | 2021-04-03 14:02 | PCM.HP.2 ---
H&P History of Present Illness - General Date of Service: 04/03/21 Admit Problem/Dx: Admission Diagnosis/Problem Admission Diagnosis/Problem UTI, Urinary tract infectious disease Source of Information: Patient, Provider, RN Notes Reviewed History Limitations: Reports: No Limitations - History of Present Illness Initial Comments - Free Text/Narative: Ms. Lu is a 65-year-old woman who was admitted through the emergency department with generalized weakness secondary to urinary tract infection and recent left humerus fracture. She reports that she has not felt well over the past several weeks. She fell about 3 weeks ago and experienced a proximal humerus fracture. Over the last 3 weeks her mobility has been severely impaired and she is spent most of her time sitting in a chair. Over the last couple of days she has been very weak to the point that she has had marked difficulty with ambulation. She presented to the emergency department today for assessment. She is found to have evidence of urinary tract infection with mild elevation in her white blood cell count. Laboratory testing and evaluation was otherwise unremarkable. - Related Data Allergies/Adverse Reactions: Allergies Allergy/AdvReac Type Severity Reaction Status Date / Time cephalexin Allergy Hallucinati Verified 04/03/21 12:17 ons ciprofloxacin AdvReac Nausea Verified 04/03/21 16:54 minocycline AdvReac Abdominal Verified 04/03/21 16:54 Cramps Home Medications: Home Meds Amphetamine/Dextroamphetamine [Adderall] 10 mg PO QID 08/09/17 [History] Thyroid [[place] Thyroid] 45 mg PO DAILY 08/09/17 [History] traMADol HCl [Tramadol HCl] 50 mg PO Q4H PRN 11/07/19 [History] Losartan Potassium 100 mg PO DAILY 06/25/20 [History] Nebivolol [Bystolic] 5 mg PO DAILY 06/25/20 [History] Venlafaxine [Effexor] 100 mg PO BID 06/25/20 [History] amLODIPine Besylate [Amlodipine Besylate] 10 mg PO BEDTIME 06/25/20 [History] risperiDONE 1 mg PO DAILY 06/25/20 [History] Cyanocobalamin (Vitamin B-12) [B-12] 0.5 tab PO DAILY 10/15/20 [History] Magnesium Amino Acid Chelate [Magnesium] 100 mg PO BEDTIME 10/15/20 [History] Multivitamin 1 each PO BID 10/15/20 [History] Tyler-3/DHA/Epa/Fish Oil [Tyler 3 500 Softgel] 1,000 mg PO DAILY 10/15/20 [History] Sennosides/Docusate Sodium [Sennosides-Docusate Sodium] 1 tab PO BID 10/15/20 [History] Ubidecarenone [Co Q-10] 200 mg PO DAILY 10/15/20 [History] Eszopiclone [Lunesta] 3 mg PO BEDTIME 03/23/21 [History] Potassium Chloride 20 meq PO DAILY #10 tablet.er 03/23/21 [Rx] traZODone 150 mg PO BEDTIME 03/23/21 [History] Calcium Citrate/Vitamin D3 [Calcium Citrate - Vit D Caplet] 1 each PO DAILY 04/01/21 [History] Past Medical History HEENT History: Reports: Impaired Vision Cardiovascular History: Reports: Hypertension, SOB on Exertion Respiratory History: Reports: Sleep Apnea, Other (See Below) Other Respiratory History: uses cpap hasnt been using it (03/28) Gastrointestinal History: Reports: Chronic Diarrhea, GERD, Other (See Below) Other Gastrointestinal History: ulcers Genitourinary History: Reports: UTI, Recurrent WILD [place]YSTER HARVESTER History: Reports: None Musculoskeletal History: Reports: Back Pain, Chronic, Fracture Other Musculoskeletal History: L proximal humerus Fx 03/12/21 Neurological History: Reports: None Psychiatric History: Reports: Anxiety, Depression, Psych Hospitalization(s), Schizophrenia Endocrine/Metabolic History: Reports: Hypothyroidism, Obesity/BMI 30+, Vitamin D Deficiency Hematologic History: Reports: B12 Deficiency Immunologic History: Reports: None Oncologic (Cancer) History: Reports: None Dermatologic History: Reports: None - Infectious Disease History Infectious Disease History: Reports: Chicken Pox, Measles, Mumps, Novel Coronavirus - Past Surgical History Head Surgeries/Procedures: Reports: None HEENT Surgical History: Reports: None Cardiovascular Surgical History: Reports: None Respiratory Surgical History: Reports: None GI Surgical History: Reports: Bariatric Procedure, Cholecystectomy, Colonoscopy, EGD, Other (See Below) Other GI Surgeries/Procedures: hemorrhoidectomy Female Surgical History: Reports: Breast Implant Endocrine Surgical History: Reports: None Neurological Surgical History: Reports: Lumbar Spine Musculoskeletal Surgical History: Reports: Ganglion Cyst, Shoulder Surgery, Other (See Below) Other Musculoskeletal Surgeries/Procedures:: spinal fusion Dermatological Surgical History: Reports: None Social & Family History - Family History Family Medical History: No Pertinent Family History - Caffeine Use Caffeine Use: Reports: Coffee H&P Review of Systems - Review of Systems: Review Of Systems: See Below General: Reports: Malaise, Weakness, Fatigue. Denies: Fever, Chills HEENT: Reports: No Symptoms Pulmonary: Reports: No Symptoms Cardiovascular: Reports: Lightheadedness. Denies: Chest Pain, Palpitations, Dyspnea on Exertion, Orthopnea, PND, Edema Gastrointestinal: Reports: No Symptoms Genitourinary: Reports: Dysuria, Frequency, Urgency. Denies: Hematuria, Retention Musculoskeletal: Reports: No Symptoms Skin: Reports: No Symptoms Psychiatric: Reports: Other (Paranoid thoughts) Neurological: Reports: No Symptoms Hematologic/Lymphatic: Reports: No Symptoms Immunologic: Reports: No Symptoms Exam - Exam Exam: See Below - Vital Signs Vital Signs: Last Vital Signs Temp 94.5 F L 04/03/21 12:34 Pulse 85 04/03/21 12:34 Resp 13 04/03/21 12:34 BP 135/65 04/03/21 12:34 Pulse Ox 98 04/03/21 12:34 Weight: 205 lb - Exam Quality Assessment: DVT Prophylaxis General: Alert, Cooperative, Mild Distress HEENT: Conjunctiva Clear, Hearing Intact, Mucosa Moist & [place], Normal Nasal Septum, Posterior Pharynx Clear, Pupils Equal Neck: Supple, Trachea Midline, +2 Carotid Pulse wo Bruit Lungs: Clear to Auscultation, Normal Respiratory Effort Cardiovascular: Regular Rate, Regular Rhythm, Normal S1, Normal S2. No: Systolic Murmur, Diastolic Murmur GI/Abdominal Exam: Soft, Non-Tender, No Organomegaly, No Distention Back Exam: Normal Inspection, Full Range of Motion Extremities: No Pedal Edema, Arm Pain Skin: Warm, Dry, Intact Neurological: Cranial Nerves Intact, Strength Equal Bilateral, Normal Speech, Normal Tone, Sensation Intact. No: Focal Deficit Neuro Extensive - Mental Status: Alert, Normal Mood/Affect, Normal Cognition, Memory Intact - Patient Data Lab Results Last 24 hrs: Laboratory Results - last 24 hr 04/03/21 04/03/21 04/03/21 Range/Units 12:53 13:05 13:05 WBC 12.8 H (4.5-11.0) K/uL RBC 3.47 (3.30-5.50) M/uL Hgb 11.0 L (12.0-15.0) g/dL Hct 31.6 L (36.0-48.0) % MCV 91 (80-98) fL MCH 32 H (27-31) pg MCHC 35 (32-36) % Plt Count 571 H (150-400) K/uL Neut % (Auto) 84.1 H (36-66) % Lymph % (Auto) 7.3 L (24-44) % [place] % (Auto) 7.6 H (2-6) % Eos % (Auto) 0.9 L (2-4) % Baso % (Auto) 0.1 (0-1) % Sodium 135 L (140-148) mmol/L Potassium 3.9 (3.6-5.2) mmol/L Chloride 99 L (100-108) mmol/L Carbon Dioxide 19 L (21-32) mmol/L Anion Gap 20.9 H (5.0-14.0) mmol/L BUN 9 (7-18) mg/dL Creatinine 1.0 (0.6-1.0) mg/dL Est Cr Clr Drug Dosing 47.14 mL/min Estimated GFR (MDRD) 55 L (>60) Glucose 90 (74-106) mg/dL Lactic Acid (0.4-2.0) mmol/L Calcium 8.6 (8.5-10.1) mg/dL Total Bilirubin 0.7 (0.2-1.0) mg/dL AST 30 (15-37) U/L ALT 61 (12-78) U/L Alkaline Phosphatase 170 H (46-116) U/L Creatine Kinase 93 (26-192) U/L Total Protein 5.1 L (6.4-8.2) g/dL Albumin 2.4 L (3.4-5.0) g/dL Globulin 2.7 (2.3-3.5) g/dL Albumin/Globulin Ratio 0.9 L (1.2-2.2) Urine Color Yellow (YELLOW) Urine Appearance Clear (CLEAR) Urine pH 6.0 (5.0-8.0) Ur Specific [place] 1.015 (1.008-1.030) Urine Protein Negative (NEGATIVE) mg/dL Urine Glucose (UA) Negative (NEGATIVE) mg/dL Urine Ketones Negative (NEGATIVE) mg/dL Urine Occult Blood Negative (NEGATIVE) Urine Nitrite Positive H (NEGATIVE) Urine Bilirubin Negative (NEGATIVE) Urine Urobilinogen 0.2 (0.2-1.0) EU/dL Ur Leukocyte Esterase Negative (NEGATIVE) Urine RBC Not seen (0-5) Urine WBC 0-5 (0-5) Ur Epithelial Cells Few Amorphous Sediment Rare Urine Bacteria Many Urine Mucus Not seen 04/03/21 Range/Units 13:05 WBC (4.5-11.0) K/uL RBC (3.30-5.50) M/uL Hgb (12.0-15.0) g/dL Hct (36.0-48.0) % MCV (80-98) fL MCH (27-31) pg MCHC (32-36) % Plt Count (150-400) K/uL Neut % (Auto) (36-66) % Lymph % (Auto) (24-44) % [place] % (Auto) (2-6) % Eos % (Auto) (2-4) % Baso % (Auto) (0-1) % Sodium (140-148) mmol/L Potassium (3.6-5.2) mmol/L Chloride (100-108) mmol/L Carbon Dioxide (21-32) mmol/L Anion Gap (5.0-14.0) mmol/L BUN (7-18) mg/dL Creatinine (0.6-1.0) mg/dL Est Cr Clr Drug Dosing mL/min Estimated GFR (MDRD) (>60) Glucose (74-106) mg/dL Lactic Acid 1.1 (0.4-2.0) mmol/L Calcium (8.5-10.1) mg/dL Total Bilirubin (0.2-1.0) mg/dL AST (15-37) U/L ALT (12-78) U/L Alkaline Phosphatase (46-116) U/L Creatine Kinase (26-192) U/L Total Protein (6.4-8.2) g/dL Albumin (3.4-5.0) g/dL Globulin (2.3-3.5) g/dL Albumin/Globulin Ratio (1.2-2.2) Urine Color (YELLOW) Urine Appearance (CLEAR) Urine pH (5.0-8.0) Ur Specific [place] (1.008-1.030) Urine Protein (NEGATIVE) mg/dL Urine Glucose (UA) (NEGATIVE) mg/dL Urine Ketones (NEGATIVE) mg/dL Urine Occult Blood (NEGATIVE) Urine Nitrite (NEGATIVE) Urine Bilirubin (NEGATIVE) Urine Urobilinogen (0.2-1.0) EU/dL Ur Leukocyte Esterase (NEGATIVE) Urine RBC (0-5) Urine WBC (0-5) Ur Epithelial Cells Amorphous Sediment Urine Bacteria Urine Mucus Result Diagrams: 04/03/21 13:05 04/03/21 13:05 Sepsis Event Note - Evaluation Sepsis Screening Result: No Definite Risk - Focused Exam Vital Signs: Vital Signs Temp Pulse Resp BP Pulse Ox 04/03/21 12:34 94.5 F L 85 13 135/65 98 04/03/21 12:23 94.5 F L 85 13 135/65 98 *Q Meaningful Use (ADM) - VTE Risk Assess *Q Each Risk Factor Represents 1 Point: Obesity ( BMI > 25 kg/m2) Total Score 1 Point Risk Factors: 1 Each Risk Factor Represents 2 Points: Age 60 - 74 Years Total Score 2 Point Risk Factors: 2 Each Risk Factor Represents 3 Points: None Total Score 3 Point Risk Factors: 0 Each Risk Factor Represents 5 Points: None Total Score 5 Point Risk Factors: 0 Venous Thromboembolism Risk Factor Score *Q: 3 Problem List Initiated/Reviewed/Updated: Yes Orders Last 24hrs: Active Orders 24 hr Category Date Time Status Patient Status Manage Transfer [TRANSFER] Routine ADT 04/03/21 13:54 Ordered CULTURE URINE [RM] Stat Lab 04/03/21 13:40 Received cefTRIAXone [Rocephin] 1 gm Med 04/03/21 13:41 Active Sodium Chloride 0.9% [Normal Saline] 50 ml IV ONETIME Resuscitation Status Routine Resus Stat 04/03/21 13:56 Ordered Medication Orders Ceftriaxone Sodium 1 gm/ (Sodium Chloride) 50 mls @ 100 mls/hr IV ONETIME ONE Stop: 04/03/21 14:10 Assessment/Plan Comment:: ASSESSMENT AND PLAN GENERALIZED WEAKNESS-secondary to immobility associated with her recent humerus fracture. -Will likely require fdc placement for restorative physical therapy and Occupational Therapy -Physical therapy consult -IV fluids for hydration URINARY TRACT INFECTION-may also be a contributing factor to current weakness. Urinalysis shows evidence of infection and she is also had symptoms of dysuria. -Urine culture pending -Ceftriaxone 1 g IV every 24 hours pending culture results HISTORY OF SCHIZOPHRENIA-she has been struggling with paranoid thoughts and is convinced that her previous landlord from [facility] is attempting to poison her -Continue outpatient medications LEFT HUMERUS FRACTURE -Continue outpatient follow-up with orthopedics MAINTENANCE ISSUES -DVT prophylaxis; Lovenox 40 mg subcu daily -GI prophylaxis; continue outpatient PPI therapy -[place] catheter; not indicated -Nutrition; regular diet -Nicotine dependence; not required CODE STATUS-FULL CODE ADMISSION STATUS-patient will be admitted to inpatient status, expect at least a 2 night hospital stay for evaluation and management of problems as outlined above. At the time of this admission I do not reasonably expected evaluation and management of this problem will require more than a 96 hour hospital stay. DISPOSITION-anticipate discharge to home after the hospital stay. - Mortality Measure Prognosis:: Good
[2021-04-03] MEDS ORDERED: Sodium Chloride 0.9% 10 ML Syringe FLUSH PRN (16:49)
[2021-04-03] MEDS ORDERED: Polyethylene Glycol 3350 Powder 17 GM Packet PO PRN (16:49)
[2021-04-03] MEDS ORDERED: Ondansetron 4 MG/2 ML SDV IV PRN (16:49)
[2021-04-03] MEDS ORDERED: Acetaminophen 325 MG Tab PO PRN (16:49)
[2021-04-03] MEDS: Sodium Chloride 0.9% 1,000 ML IV SCH (18:05)
[2021-04-03] MEDS: Enoxaparin 40 MG/0.4 ML Syringe SUBCUT SCH (19:25)
[2021-04-03] MEDS: Pramipexole 0.5 MG Tab PO SCH (21:02)
[2021-04-03] MEDS: amLODIPine 5 MG Tab PO SCH (21:03)
[2021-04-03] MEDS: traZODone 50 MG Tab PO SCH (21:56)
[2021-04-04] MEDS: Sodium Chloride 0.9% 1,000 ML IV SCH ×2 (03:31→11:33)
[2021-04-04] MEDS: Acetaminophen/HYDROcodone 325-5 MG Tab PO PRN ×4 (03:56→21:34)
[2021-04-04] MEDS: Amphetamine/Dextroamphetamine Salts 10 MG Tab PO SCH ×2 (08:15→13:58)
[2021-04-04] MEDS: Cyanocobalamin (Vitamin B12) 1,000 MCG Tab PO SCH (08:15)
[2021-04-04] MEDS: Losartan 50 MG Tab PO SCH (08:16)
[2021-04-04] MEDS: Venlafaxine 75 MG Tab PO SCH ×2 (11:27→21:36)
--- NOTE | 2021-04-04 14:22 | PCM.PN ---
- General Info Date of Service: 04/04/21 Subjective Update: Ms. Lu has remained stable since admission. Vital signs are good and she has been afebrile. Remains very weak and requires significant assistance for transfers and ambulation. - Review of Systems General: Reports: Weakness, Fatigue. Denies: Fever, Chills Pulmonary: Reports: No Symptoms Cardiovascular: Reports: No Symptoms Gastrointestinal: Reports: No Symptoms Musculoskeletal: Reports: Arm Pain - Patient Data Vitals - Most Recent: Last Vital Signs Temp 96.8 F L 04/04/21 12:26 Pulse 110 H 04/04/21 12:26 Resp 16 04/04/21 12:26 BP 98/49 L 04/04/21 12:26 Pulse Ox 90 L 04/04/21 12:26 Weight - Most Recent: 192 lb 3.889 oz I&O - Last 24 Hours: Intake & Output 04/03/21 04/04/21 04/04/21 22:59 06:59 14:59 Intake Total 240 2619 160 Output Total 700 Balance 240 1919 160 Lab Results Last 24 Hours: Laboratory Results - last 24 hr 04/04/21 04/04/21 Range/Units 06:00 06:00 WBC 10.4 (4.5-11.0) K/uL RBC 3.06 L (3.30-5.50) M/uL Hgb 9.7 L (12.0-15.0) g/dL Hct 28.0 L (36.0-48.0) % MCV 92 (80-98) fL MCH 32 H (27-31) pg MCHC 35 (32-36) % Plt Count 498 H (150-400) K/uL Neut % (Auto) 71.2 H (36-66) % Lymph % (Auto) 15.4 L (24-44) % [place] % (Auto) 9.8 H (2-6) % Eos % (Auto) 3.4 (2-4) % Baso % (Auto) 0.2 (0-1) % Sodium 136 L (140-148) mmol/L Potassium 4.2 (3.6-5.2) mmol/L Chloride 102 (100-108) mmol/L Carbon Dioxide 19 L (21-32) mmol/L Anion Gap 19.2 H (5.0-14.0) mmol/L BUN 8 (7-18) mg/dL Creatinine 1.1 H (0.6-1.0) mg/dL Est Cr Clr Drug Dosing 42.85 mL/min Estimated GFR (MDRD) 50 L (>60) Glucose 73 L (74-106) mg/dL Calcium 8.1 L (8.5-10.1) mg/dL Magnesium 1.9 (1.8-2.4) mg/dL Ralf Results Last 24 Hours: Microbiology 04/03/21 13:40 Urine Culture - Preliminary Urine, Quick Cath (In-Out) Med Orders - Current: Current Medications Acetaminophen (Acetaminophen 325 Mg Tab) 650 mg PO Q4H PRN PRN Reason: Pain (Mild 1-3)/fever Hydrocodone Bitart/Acetaminophen (Acetaminophen/Hydrocodone 325-5 Mg Tab) 2 tab PO Q4H PRN PRN Reason: Pain (moderate 4-6) Last Admin: 04/04/21 11:27 Dose: 2 tab Documented by: Amlodipine Besylate (Amlodipine 5 Mg Tab) 10 mg PO BEDTIME [facility] Last Admin: 04/03/21 21:03 Dose: 10 mg Documented by: Amphetamine/Dextroamphetamine (Amphetamine/Dextroamphetamine Salts 10 Mg Tab) 20 mg PO BIDDIURETIC [facility] Last Admin: 04/04/21 13:58 Dose: 20 mg Documented by: Cyanocobalamin (Cyanocobalamin (Vitamin B12) 1,000 Mcg Tab) 5,000 mcg PO DAILY [facility] Last Admin: 04/04/21 08:15 Dose: 5,000 mcg Documented by: Enoxaparin Sodium (Enoxaparin 40 Mg/0.4 Ml Syringe) 40 mg SUBCUT Q24H [facility] Last Admin: 04/03/21 19:25 Dose: 40 mg Documented by: Eszopiclone (Eszopiclone 1 Mg Tab) 3 mg PO BEDTIME [facility] Last Admin: 04/03/21 21:56 Dose: 3 mg Documented by: Ceftriaxone Sodium 1 gm/ (Sodium Chloride) 50 mls @ 100 mls/hr IV Q24H [facility] Losartan Potassium (Losartan 50 Mg Tab) 100 mg PO DAILY [facility] Last Admin: 04/04/21 08:16 Dose: 100 mg Documented by: Nebivolol (Nebivolol 10 Mg Tab) 5 mg PO DAILY [facility] Last Admin: 04/04/21 08:15 Dose: 5 mg Documented by: Ondansetron HCl (Ondansetron 4 Mg/2 Ml Sdv) 4 mg IV Q4H PRN PRN Reason: Nausea/Vomiting Polyethylene Glycol (Polyethylene Glycol 3350 Powder 17 Gm Packet) 17 gm PO DAILY PRN PRN Reason: Constipation Pramipexole Dihydrochloride (Pramipexole 0.5 Mg Tab) 0.5 mg PO BEDTIME [facility] Last Admin: 04/03/21 21:02 Dose: 0.5 mg Documented by: Sodium Chloride (Sodium Chloride 0.9% 10 Ml Syringe) 10 ml FLUSH ASDIRECTED PRN PRN Reason: Keep Vein Open Thyroid (Thyroid 30 Mg Tab) 45 mg PO ACBREAKFAST [facility] Last Admin: 04/04/21 08:15 Dose: 45 mg Documented by: Trazodone HCl (Trazodone 50 Mg Tab) 150 mg PO BEDTIME [facility] Last Admin: 04/03/21 21:56 Dose: 150 mg Documented by: Venlafaxine HCl (Venlafaxine 75 Mg Tab) 93.75 mg PO BID [facility] Last Admin: 04/04/21 11:27 Dose: 93.75 mg Documented by: Discontinued Medications Fentanyl (Fentanyl 100 Mcg/2 Ml Sdv) 50 mcg IVPUSH ONETIME ONE Stop: 04/03/21 13:24 Last Admin: 04/03/21 13:28 Dose: 50 mcg Documented by: Fentanyl (Fentanyl 100 Mcg/2 Ml Sdv) 50 mcg IVPUSH ONETIME ONE Stop: 04/03/21 15:20 Last Admin: 04/03/21 15:26 Dose: 50 mcg Documented by: Ceftriaxone Sodium 1 gm/ (Sodium Chloride) 50 mls @ 100 mls/hr IV ONETIME ONE Stop: 04/03/21 14:59 Last Admin: 04/03/21 14:27 Dose: 100 mls/hr Documented by: Sodium Chloride (Normal Saline) 1,000 mls @ 125 mls/hr IV ASDIRECTED [facility] Last Admin: 04/04/21 11:33 Dose: 125 mls/hr Documented by: - Exam Quality Assessment: DVT Prophylaxis General: Alert, Cooperative, Mild Distress Lungs: Clear to Auscultation, Normal Respiratory Effort Cardiovascular: Regular Rate, Regular Rhythm, No Murmurs GI/Abdominal Exam: Soft, Non-Tender, No Organomegaly, No Distention Extremities: Non-Tender, No Pedal Edema - Patient Data Lab Results Last 24 hrs: Laboratory Results - last 24 hr 04/04/21 04/04/21 Range/Units 06:00 06:00 WBC 10.4 (4.5-11.0) K/uL RBC 3.06 L (3.30-5.50) M/uL Hgb 9.7 L (12.0-15.0) g/dL Hct 28.0 L (36.0-48.0) % MCV 92 (80-98) fL MCH 32 H (27-31) pg MCHC 35 (32-36) % Plt Count 498 H (150-400) K/uL Neut % (Auto) 71.2 H (36-66) % Lymph % (Auto) 15.4 L (24-44) % [place] % (Auto) 9.8 H (2-6) % Eos % (Auto) 3.4 (2-4) % Baso % (Auto) 0.2 (0-1) % Sodium 136 L (140-148) mmol/L Potassium 4.2 (3.6-5.2) mmol/L Chloride 102 (100-108) mmol/L Carbon Dioxide 19 L (21-32) mmol/L Anion Gap 19.2 H (5.0-14.0) mmol/L BUN 8 (7-18) mg/dL Creatinine 1.1 H (0.6-1.0) mg/dL Est Cr Clr Drug Dosing 42.85 mL/min Estimated GFR (MDRD) 50 L (>60) Glucose 73 L (74-106) mg/dL Calcium 8.1 L (8.5-10.1) mg/dL Magnesium 1.9 (1.8-2.4) mg/dL Result Diagrams: 04/04/21 06:00 04/04/21 06:00 Ralf Results Last 24 hrs: Microbiology 04/03/21 13:40 Urine Culture - Preliminary Urine, Quick Cath (In-Out) Sepsis Event Note - Evaluation Sepsis Screening Result: Sepsis Risk - Focused Exam Vital Signs: Vital Signs Temp Pulse Pulse Resp BP BP Pulse Ox 04/04/21 12:26 96.8 F L 110 H 16 98/49 L 90 L 04/04/21 08:16 104/54 L 04/04/21 08:15 91 104/54 L 04/04/21 07:24 96.4 F L 91 16 104/54 L 91 L 04/04/21 03:30 97.3 F 98 18 122/56 L 94 L - Problem List Review Problem List Initiated/Reviewed/Updated: Yes - My Orders Last 24 Hours: My Active Orders 04/03/21 13:56 Resuscitation Status Routine 04/03/21 16:49 Acetaminophen [TylenoL] 650 mg PO Q4H PRN Acetaminophen/HYDROcodone [[place] 325-5 MG] 2 tab PO Q4H PRN Ondansetron [Zofran] 4 mg IV Q4H PRN Sodium Chloride 0.9% [Saline Flush] 10 ml FLUSH ASDIRECTED PRN polyethylene glycoL 3350 [MiraLAX] 17 gm PO DAILY PRN 04/03/21 16:49 Patient Status [ADT] Routine Ambulate [RC] QID Height and Weight [RC] DAILY Intake and Output [RC] QSHIFT Notify Provider Vital Signs [RC] ASDIRECTED Oxygen Therapy [RC] PRN Peripheral IV Care [RC] . DIRECTED Up With Assistance [RC] ASDIRECTED Up to Chair [RC] QID VTE/DVT Education [RC] Per Unit Routine Vital Signs [RC] Q4H PT Evaluation and Treatment [CONS] Routine Peripheral IV Insertion Adult [OM.PC] Routine 04/03/21 17:30 Enoxaparin [Lovenox] 40 mg SUBCUT Q24H 04/03/21 21:00 Eszopiclone [Lunesta] 3 mg PO BEDTIME Pramipexole [Mirapex] 0.5 mg PO BEDTIME amLODIPine [Norvasc] 10 mg PO BEDTIME traZODone 150 mg PO BEDTIME 04/04/21 07:30 Thyroid [[place] Thyroid] 45 mg PO ACBREAKFAST 04/04/21 08:00 Amphetamine/Dextroamphetamine [Adderall] 20 mg PO BIDDIURETIC 04/04/21 09:00 Cyanocobalamin (Vitamin B12) [Vitamin B12] 5,000 mcg PO DAILY Losartan [Cozaar] 100 mg PO DAILY Nebivolol [Bystolic] 5 mg PO DAILY 04/04/21 12:00 Venlafaxine [Effexor] 93.75 mg PO BID 04/04/21 14:15 cefTRIAXone [Rocephin] 1 gm Sodium Chloride 0.9% [Normal Saline] 50 ml IV Q24H Convert IV to Saline Lock [OM.PC] Routine 04/05/21 05:00 BASIC METABOLIC PANEL,BMP [CHEM] Timed CBC WITH AUTO DIFF [HEME] Timed - Plan Plan:: ASSESSMENT AND PLAN GENERALIZED WEAKNESS-secondary to immobility associated with her recent humerus fracture. -Will likely require fci placement for restorative physical therapy and Occupational Therapy -Physical therapy consult -Saline lock IV URINARY TRACT INFECTION-may also be a contributing factor to current weakness. Urinalysis shows evidence of infection and she is also had symptoms of dysuria. -Urine culture pending -Ceftriaxone 1 g IV every 24 hours pending culture results HISTORY OF SCHIZOPHRENIA-she has been struggling with paranoid thoughts and is convinced that her previous landlord from [facility] is attempting to poison her -Continue outpatient medications LEFT HUMERUS FRACTURE -Continue outpatient follow-up with orthopedics MAINTENANCE ISSUES -DVT prophylaxis; Lovenox 40 mg subcu daily -GI prophylaxis; continue outpatient PPI therapy -[place] catheter; not indicated -Nutrition; regular diet -Nicotine dependence; not required CODE STATUS-FULL CODE ADMISSION STATUS-patient will be admitted to inpatient status, expect at least a 2 night hospital stay for evaluation and management of problems as outlined above. At the time of this admission I do not reasonably expected evaluation and management of this problem will require more than a 96 hour hospital stay. DISPOSITION-anticipate discharge to home after the hospital stay.
[2021-04-04] MEDS ORDERED: cefTRIAXone 1 GM in Sodium Chloride 0.9% 50 ML IV SCH (14:30)
[2021-04-04] MEDS: Enoxaparin 40 MG/0.4 ML Syringe SUBCUT SCH (17:29)
[2021-04-04] MEDS: amLODIPine 5 MG Tab PO SCH (21:38)
[2021-04-04] MEDS: Pramipexole 0.5 MG Tab PO SCH (21:38)
[2021-04-04] MEDS: traZODone 50 MG Tab PO SCH (21:44)
[2021-04-05] MEDS: Acetaminophen/HYDROcodone 325-5 MG Tab PO PRN ×3 (04:28→20:58)
[2021-04-05] MEDS: Venlafaxine 75 MG Tab PO SCH ×2 (08:27→20:53)
[2021-04-05] MEDS: Cyanocobalamin (Vitamin B12) 1,000 MCG Tab PO SCH (08:27)
[2021-04-05] MEDS: Amphetamine/Dextroamphetamine Salts 10 MG Tab PO SCH ×2 (08:32→13:41)
[2021-04-05] MEDS: Losartan 50 MG Tab PO SCH (10:11)
--- NOTE | 2021-04-05 11:06 | PCM.PN ---
- General Info Date of Service: 04/05/21 Subjective Update: Ms. Lu is felt further improvement over the last 24 hours with increased appetite and overall energy level. Now able to walk short distances. Urine culture growing pansensitive E. coli. Functional Status: Reports: Tolerating Diet, Ambulating, Urinating - Review of Systems General: Reports: Weakness, Fatigue. Denies: Fever, Chills Pulmonary: Reports: No Symptoms Cardiovascular: Reports: No Symptoms Gastrointestinal: Reports: No Symptoms Genitourinary: Reports: No Symptoms Musculoskeletal: Reports: Arm Pain - Patient Data Vitals - Most Recent: Last Vital Signs Temp 95.3 F L 04/05/21 08:03 Pulse 85 04/05/21 08:03 Resp 16 04/05/21 08:03 BP 99/48 L 04/05/21 08:03 Pulse Ox 96 04/05/21 08:03 Weight - Most Recent: 202 lb I&O - Last 24 Hours: Intake & Output 04/04/21 04/05/21 04/05/21 22:59 06:59 14:59 Intake Total 180 800 Output Total 1300 200 200 Balance -1120 600 -200 Lab Results Last 24 Hours: Laboratory Results - last 24 hr 04/05/21 04/05/21 Range/Units 04:10 04:10 WBC 6.9 (4.5-11.0) K/uL RBC 3.07 L (3.30-5.50) M/uL Hgb 9.8 L (12.0-15.0) g/dL Hct 28.7 L (36.0-48.0) % MCV 94 (80-98) fL MCH 32 H (27-31) pg MCHC 34 (32-36) % Plt Count 460 H (150-400) K/uL Neut % (Auto) 49.3 (36-66) % Lymph % (Auto) 33.3 (24-44) % Stanton % (Auto) 12.8 H (2-6) % Eos % (Auto) 4.3 H (2-4) % Baso % (Auto) 0.3 (0-1) % Sodium 141 (140-148) mmol/L Potassium 3.9 (3.6-5.2) mmol/L Chloride 107 (100-108) mmol/L Carbon Dioxide 22 (21-32) mmol/L Anion Gap 11.8 (5.0-14.0) mmol/L BUN 7 (7-18) mg/dL Creatinine 1.0 (0.6-1.0) mg/dL Est Cr Clr Drug Dosing 47.48 mL/min Estimated GFR (MDRD) 55 L (>60) Glucose 77 (74-106) mg/dL Calcium 8.5 (8.5-10.1) mg/dL Ralf Results Last 24 Hours: Microbiology 04/03/21 13:40 Urine Culture - Final Urine, Quick Cath (In-Out) Escherichia Coli Med Orders - Current: Current Medications Acetaminophen (Acetaminophen 325 Mg Tab) 650 mg PO Q4H PRN PRN Reason: Pain (Mild 1-3)/fever Hydrocodone Bitart/Acetaminophen (Acetaminophen/Hydrocodone 325-5 Mg Tab) 2 tab PO Q4H PRN PRN Reason: Pain (moderate 4-6) Last Admin: 04/05/21 04:28 Dose: 2 tab Documented by: Amlodipine Besylate (Amlodipine 5 Mg Tab) 10 mg PO BEDTIME [facility] Last Admin: 04/04/21 21:38 Dose: Not Given Documented by: Amphetamine/Dextroamphetamine (Amphetamine/Dextroamphetamine Salts 10 Mg Tab) 20 mg PO BIDDIURETIC [facility] Last Admin: 04/05/21 08:32 Dose: 20 mg Documented by: Ampicillin (Ampicillin 500 Mg Cap) 500 mg PO QID MO Stop: 04/07/21 22:01 Cyanocobalamin (Cyanocobalamin (Vitamin B12) 1,000 Mcg Tab) 5,000 mcg PO DAILY [facility] Last Admin: 04/05/21 08:27 Dose: 5,000 mcg Documented by: Enoxaparin Sodium (Enoxaparin 40 Mg/0.4 Ml Syringe) 40 mg SUBCUT Q24H [facility] Last Admin: 04/04/21 17:29 Dose: 40 mg Documented by: Eszopiclone (Eszopiclone 1 Mg Tab) 3 mg PO BEDTIME [facility] Last Admin: 04/04/21 21:44 Dose: 3 mg Documented by: Ceftriaxone Sodium 1 gm/ (Sodium Chloride) 50 mls @ 100 mls/hr IV Q24H [facility] Losartan Potassium (Losartan 50 Mg Tab) 100 mg PO DAILY [facility] Last Admin: 04/05/21 10:11 Dose: Not Given Documented by: Nebivolol (Nebivolol 10 Mg Tab) 5 mg PO DAILY [facility] Last Admin: 04/05/21 10:11 Dose: Not Given Documented by: Ondansetron HCl (Ondansetron 4 Mg/2 Ml Sdv) 4 mg IV Q4H PRN PRN Reason: Nausea/Vomiting Polyethylene Glycol (Polyethylene Glycol 3350 Powder 17 Gm Packet) 17 gm PO DAILY PRN PRN Reason: Constipation Pramipexole Dihydrochloride (Pramipexole 0.5 Mg Tab) 0.5 mg PO BEDTIME [facility] Last Admin: 04/04/21 21:38 Dose: 0.5 mg Documented by: Sodium Chloride (Sodium Chloride 0.9% 10 Ml Syringe) 10 ml FLUSH ASDIRECTED PRN PRN Reason: Keep Vein Open Thyroid (Thyroid 30 Mg Tab) 45 mg PO ACBREAKFAST [facility] Last Admin: 04/05/21 08:27 Dose: 45 mg Documented by: Trazodone HCl (Trazodone 50 Mg Tab) 150 mg PO BEDTIME [facility] Last Admin: 04/04/21 21:44 Dose: 150 mg Documented by: Venlafaxine HCl (Venlafaxine 75 Mg Tab) 93.75 mg PO BID [facility] Last Admin: 04/05/21 08:27 Dose: 93.75 mg Documented by: Discontinued Medications Fentanyl (Fentanyl 100 Mcg/2 Ml Sdv) 50 mcg IVPUSH ONETIME ONE Stop: 04/03/21 13:24 Last Admin: 04/03/21 13:28 Dose: 50 mcg Documented by: Fentanyl (Fentanyl 100 Mcg/2 Ml Sdv) 50 mcg IVPUSH ONETIME ONE Stop: 04/03/21 15:20 Last Admin: 04/03/21 15:26 Dose: 50 mcg Documented by: Ceftriaxone Sodium 1 gm/ (Sodium Chloride) 50 mls @ 100 mls/hr IV ONETIME ONE Stop: 04/03/21 14:59 Last Admin: 04/03/21 14:27 Dose: 100 mls/hr Documented by: Sodium Chloride (Normal Saline) 1,000 mls @ 125 mls/hr IV ASDIRECTED [facility] Last Admin: 04/04/21 11:33 Dose: 125 mls/hr Documented by: Ceftriaxone Sodium 1 gm/ (Sodium Chloride) 50 mls @ 100 mls/hr IV Q24H [facility] Last Admin: 04/04/21 14:49 Dose: 100 mls/hr Documented by: - Exam Quality Assessment: DVT Prophylaxis General: Alert, Oriented, Cooperative, No Acute Distress Lungs: Clear to Auscultation, Normal Respiratory Effort Cardiovascular: Regular Rate, Regular Rhythm, No Murmurs GI/Abdominal Exam: Soft, Non-Tender, No Organomegaly, No Distention Extremities: Arm Pain (Left arm humerus fracture, currently in a sling) - Patient Data Lab Results Last 24 hrs: Laboratory Results - last 24 hr 04/05/21 04/05/21 Range/Units 04:10 04:10 WBC 6.9 (4.5-11.0) K/uL RBC 3.07 L (3.30-5.50) M/uL Hgb 9.8 L (12.0-15.0) g/dL Hct 28.7 L (36.0-48.0) % MCV 94 (80-98) fL MCH 32 H (27-31) pg MCHC 34 (32-36) % Plt Count 460 H (150-400) K/uL Neut % (Auto) 49.3 (36-66) % Lymph % (Auto) 33.3 (24-44) % Stanton % (Auto) 12.8 H (2-6) % Eos % (Auto) 4.3 H (2-4) % Baso % (Auto) 0.3 (0-1) % Sodium 141 (140-148) mmol/L Potassium 3.9 (3.6-5.2) mmol/L Chloride 107 (100-108) mmol/L Carbon Dioxide 22 (21-32) mmol/L Anion Gap 11.8 (5.0-14.0) mmol/L BUN 7 (7-18) mg/dL Creatinine 1.0 (0.6-1.0) mg/dL Est Cr Clr Drug Dosing 47.48 mL/min Estimated GFR (MDRD) 55 L (>60) Glucose 77 (74-106) mg/dL Calcium 8.5 (8.5-10.1) mg/dL Result Diagrams: 04/05/21 04:10 04/05/21 04:10 Ralf Results Last 24 hrs: Microbiology 04/03/21 13:40 Urine Culture - Final Urine, Quick Cath (In-Out) Escherichia Coli Sepsis Event Note - Evaluation Sepsis Screening Result: No Definite Risk - Focused Exam Vital Signs: Vital Signs Temp Pulse Resp BP Pulse Ox 04/05/21 08:03 95.3 F L 85 16 99/48 L 96 04/05/21 03:00 96 F L 79 16 101/53 L 90 L 04/04/21 22:57 90/50 L - Problem List Review Problem List Initiated/Reviewed/Updated: Yes - My Orders Last 24 Hours: My Active Orders 04/04/21 12:00 Venlafaxine [Effexor] 93.75 mg PO BID 04/04/21 14:15 Convert IV to Saline Lock [OM.PC] Routine 04/05/21 23:00 cefTRIAXone [Rocephin] 1 gm Sodium Chloride 0.9% [Normal Saline] 50 ml IV Q24H 04/06/21 08:00 Ampicillin [Principen] 500 mg PO QID - Plan Plan:: ASSESSMENT AND PLAN GENERALIZED WEAKNESS-secondary to immobility associated with her recent humerus fracture. She is improved since admission, now able to walk short distances -Will likely require long-term placement for restorative physical therapy and Occupational Therapy -Physical therapy consult -Saline lock IV URINARY TRACT INFECTION-may also be a contributing factor to current weakness. Urinalysis shows evidence of infection and she is also had symptoms of dysuria. Culture now growing pansensitive E. coli -Ceftriaxone 1 g IV every 24 hours pending culture results, discontinue after today -Begin ampicillin in a.m. 500 mg 4 times daily, for 2 days HISTORY OF SCHIZOPHRENIA-she has been struggling with paranoid thoughts and is convinced that her previous landlord from [facility] is attempting to poison her -Continue outpatient medications LEFT HUMERUS FRACTURE -Continue outpatient follow-up with orthopedics MAINTENANCE ISSUES -DVT prophylaxis; Lovenox 40 mg subcu daily -GI prophylaxis; continue outpatient PPI therapy -[place] catheter; not indicated -Nutrition; regular diet -Nicotine dependence; not required CODE STATUS-FULL CODE ADMISSION STATUS-patient will be admitted to inpatient status, expect at least a 2 night hospital stay for evaluation and management of problems as outlined above. At the time of this admission I do not reasonably expected evaluation and management of this problem will require more than a 96 hour hospital stay. DISPOSITION-anticipate discharge to home after the hospital stay.
[2021-04-05] MEDS ORDERED: cefTRIAXone 1 GM in Sodium Chloride 0.9% 50 ML IV SCH (14:00)
[2021-04-05] MEDS: Enoxaparin 40 MG/0.4 ML Syringe SUBCUT SCH (16:32)
[2021-04-05] MEDS: amLODIPine 5 MG Tab PO SCH (20:51)
[2021-04-05] MEDS: traZODone 50 MG Tab PO SCH (20:52)
[2021-04-05] MEDS: Pramipexole 0.5 MG Tab PO SCH (20:53)
[2021-04-06] MEDS: Ampicillin 500 MG Cap PO SCH ×4 (05:53→21:02)
[2021-04-06] MEDS: Cyanocobalamin (Vitamin B12) 1,000 MCG Tab PO SCH (08:19)
[2021-04-06] MEDS: Losartan 50 MG Tab PO SCH (08:19)
[2021-04-06] MEDS: Amphetamine/Dextroamphetamine Salts 10 MG Tab PO SCH ×3 (08:19→15:03)
[2021-04-06] MEDS: Venlafaxine 75 MG Tab PO SCH ×2 (08:20→20:32)
--- NOTE | 2021-04-06 11:21 | PCM.PN ---
- General Info Date of Service: 04/06/21 Subjective Update: Ms. Lu has remained stable since yesterday, remains very weak and requires significant assistance with ambulation and transfers. Pain control has been fairly good, vital signs stable, and afebrile. Functional Status: Reports: Tolerating Diet, Ambulating, Urinating - Review of Systems General: Reports: Weakness, Fatigue. Denies: Fever, Chills Pulmonary: Reports: No Symptoms Cardiovascular: Reports: No Symptoms Gastrointestinal: Reports: No Symptoms Musculoskeletal: Reports: Arm Pain - Patient Data Vitals - Most Recent: Last Vital Signs Temp 96.6 F L 04/06/21 10:33 Pulse 79 04/06/21 10:33 Resp 16 04/06/21 10:33 BP 102/66 04/06/21 10:33 Pulse Ox 93 L 04/06/21 10:33 Weight - Most Recent: 202 lb I&O - Last 24 Hours: Intake & Output 04/05/21 04/06/21 04/06/21 22:59 06:59 14:59 Intake Total 1550 1800 1000 Output Total 1400 Balance 150 1800 1000 Med Orders - Current: Current Medications Acetaminophen (Acetaminophen 325 Mg Tab) 650 mg PO Q4H PRN PRN Reason: Pain (Mild 1-3)/fever Hydrocodone Bitart/Acetaminophen (Acetaminophen/Hydrocodone 325-5 Mg Tab) 2 tab PO Q4H PRN PRN Reason: Pain (moderate 4-6) Last Admin: 04/05/21 20:58 Dose: 2 tab Documented by: Amlodipine Besylate (Amlodipine 5 Mg Tab) 10 mg PO BEDTIME [facility] Last Admin: 04/05/21 20:51 Dose: Not Given Documented by: Amphetamine/Dextroamphetamine (Amphetamine/Dextroamphetamine Salts 10 Mg Tab) 20 mg PO BIDDIURETIC [facility] Last Admin: 04/06/21 08:19 Dose: 20 mg Documented by: Ampicillin (Ampicillin 500 Mg Cap) 500 mg PO QID [facility] Stop: 04/07/21 22:01 Last Admin: 04/06/21 10:28 Dose: 500 mg Documented by: Cyanocobalamin (Cyanocobalamin (Vitamin B12) 1,000 Mcg Tab) 5,000 mcg PO DAILY [facility] Last Admin: 04/06/21 08:19 Dose: 5,000 mcg Documented by: Enoxaparin Sodium (Enoxaparin 40 Mg/0.4 Ml Syringe) 40 mg SUBCUT Q24H [facility] Last Admin: 04/05/21 16:32 Dose: 40 mg Documented by: Eszopiclone (Eszopiclone 1 Mg Tab) 3 mg PO BEDTIME [facility] Last Admin: 04/05/21 20:58 Dose: 3 mg Documented by: Losartan Potassium (Losartan 50 Mg Tab) 100 mg PO DAILY [facility] Last Admin: 04/06/21 08:19 Dose: 100 mg Documented by: Nebivolol (Nebivolol 10 Mg Tab) 5 mg PO DAILY [facility] Last Admin: 04/06/21 08:20 Dose: 5 mg Documented by: Ondansetron HCl (Ondansetron 4 Mg/2 Ml Sdv) 4 mg IV Q4H PRN PRN Reason: Nausea/Vomiting Last Admin: 04/05/21 16:32 Dose: 4 mg Documented by: Polyethylene Glycol (Polyethylene Glycol 3350 Powder 17 Gm Packet) 17 gm PO DAILY PRN PRN Reason: Constipation Last Admin: 04/06/21 08:19 Dose: 17 gm Documented by: Pramipexole Dihydrochloride (Pramipexole 0.5 Mg Tab) 0.5 mg PO BEDTIME [facility] Last Admin: 04/05/21 20:53 Dose: 0.5 mg Documented by: Sodium Chloride (Sodium Chloride 0.9% 10 Ml Syringe) 10 ml FLUSH ASDIRECTED PRN PRN Reason: Keep Vein Open Thyroid (Thyroid 30 Mg Tab) 45 mg PO ACBREAKFAST [facility] Last Admin: 04/06/21 08:20 Dose: 45 mg Documented by: Trazodone HCl (Trazodone 50 Mg Tab) 150 mg PO BEDTIME [facility] Last Admin: 04/05/21 20:52 Dose: 150 mg Documented by: Venlafaxine HCl (Venlafaxine 75 Mg Tab) 93.75 mg PO BID [facility] Last Admin: 04/06/21 08:20 Dose: 93.75 mg Documented by: Discontinued Medications Fentanyl (Fentanyl 100 Mcg/2 Ml Sdv) 50 mcg IVPUSH ONETIME ONE Stop: 04/03/21 13:24 Last Admin: 04/03/21 13:28 Dose: 50 mcg Documented by: Fentanyl (Fentanyl 100 Mcg/2 Ml Sdv) 50 mcg IVPUSH ONETIME ONE Stop: 04/03/21 15:20 Last Admin: 04/03/21 15:26 Dose: 50 mcg Documented by: Ceftriaxone Sodium 1 gm/ (Sodium Chloride) 50 mls @ 100 mls/hr IV ONETIME ONE Stop: 04/03/21 14:59 Last Admin: 04/03/21 14:27 Dose: 100 mls/hr Documented by: Sodium Chloride (Normal Saline) 1,000 mls @ 125 mls/hr IV ASDIRECTED [facility] Last Admin: 04/04/21 11:33 Dose: 125 mls/hr Documented by: Ceftriaxone Sodium 1 gm/ (Sodium Chloride) 50 mls @ 100 mls/hr IV Q24H [facility] Last Admin: 04/04/21 14:49 Dose: 100 mls/hr Documented by: Ceftriaxone Sodium 1 gm/ (Sodium Chloride) 50 mls @ 100 mls/hr IV Q24H [facility] Stop: 04/05/21 14:29 Last Admin: 04/05/21 13:42 Dose: 100 mls/hr Documented by: - Exam Quality Assessment: DVT Prophylaxis General: Alert, Oriented, Cooperative, Mild Distress Lungs: Clear to Auscultation, Normal Respiratory Effort Cardiovascular: Regular Rate, Regular Rhythm, No Murmurs GI/Abdominal Exam: Soft, Non-Tender, No Organomegaly, No Distention Extremities: Arm Pain - Patient Data Result Diagrams: 04/05/21 04:10 04/05/21 04:10 Sepsis Event Note - Evaluation Sepsis Screening Result: No Definite Risk - Focused Exam Vital Signs: Vital Signs Temp Pulse Pulse Resp BP BP Pulse Ox 04/06/21 10:33 96.6 F L 79 16 102/66 93 L 04/06/21 08:20 89 141/69 H 04/06/21 08:19 141/69 H 04/06/21 07:58 96.7 F L 89 16 141/69 H 96 04/06/21 04:00 95.6 F L 92 16 134/70 95 - Problem List Review Problem List Initiated/Reviewed/Updated: Yes - My Orders Last 24 Hours: My Active Orders 04/06/21 06:00 Ampicillin [Principen] 500 mg PO QID - Plan Plan:: ASSESSMENT AND PLAN GENERALIZED WEAKNESS-secondary to immobility associated with her recent humerus fracture. She has improved since admission, now able to walk short distances -Will likely require alf placement for restorative physical therapy and Occupational Therapy -Physical therapy consult -Saline lock IV URINARY TRACT INFECTION-may also be a contributing factor to current weakness. Urinalysis shows evidence of infection and she is also had symptoms of dysuria. Culture now growing pansensitive E. coli -Begin ampicillin today 500 mg 4 times daily, for 2 days HISTORY OF SCHIZOPHRENIA-she has been struggling with paranoid ideation -Continue outpatient medications LEFT HUMERUS FRACTURE -Continue outpatient follow-up with orthopedics MAINTENANCE ISSUES -DVT prophylaxis; Lovenox 40 mg subcu daily -GI prophylaxis; continue outpatient PPI therapy -[place] catheter; not indicated -Nutrition; regular diet -Nicotine dependence; not required CODE STATUS-FULL CODE ADMISSION STATUS-patient will be admitted to inpatient status, expect at least a 2 night hospital stay for evaluation and management of problems as outlined above. At the time of this admission I do not reasonably expected evaluation and management of this problem will require more than a 96 hour hospital stay. DISPOSITION-anticipate discharge to home after the hospital stay.
[2021-04-06] MEDS: Acetaminophen/HYDROcodone 325-5 MG Tab PO PRN ×3 (12:04→20:39)
[2021-04-06] MEDS: Enoxaparin 40 MG/0.4 ML Syringe SUBCUT SCH (16:39)
[2021-04-06] MEDS: traZODone 50 MG Tab PO SCH (20:32)
[2021-04-06] MEDS: amLODIPine 5 MG Tab PO SCH (20:33)
[2021-04-06] MEDS: Pramipexole 0.5 MG Tab PO SCH (20:34)
[2021-04-07] MEDS: Ampicillin 500 MG Cap PO SCH ×4 (05:41→21:16)
[2021-04-07] MEDS: Acetaminophen/HYDROcodone 325-5 MG Tab PO PRN ×4 (05:46→20:00)
[2021-04-07] MEDS: Cyanocobalamin (Vitamin B12) 1,000 MCG Tab PO SCH (08:59)
[2021-04-07] MEDS: Losartan 50 MG Tab PO SCH (08:59)
[2021-04-07] MEDS: Amphetamine/Dextroamphetamine Salts 10 MG Tab PO SCH ×2 (09:00→15:05)
[2021-04-07] MEDS: Venlafaxine 75 MG Tab PO SCH ×2 (09:00→21:11)
--- NOTE | 2021-04-07 13:33 | PCM.PN ---
- General Info Date of Service: 04/07/21 Subjective Update: No acute events overnight. Pain control is acceptable at this time. Appetite has been good. Plan is for discharge to the jail tomorrow if stable overnight. No bed was available today because of the holiday. No significant behavior issues. Functional Status: Reports: Pain Controlled, Tolerating Diet - Review of Systems Musculoskeletal: Reports: Arm Pain (left arm ) - Patient Data Vitals - Most Recent: Last Vital Signs Temp 35.6 C L 04/07/21 10:26 Pulse 95 04/07/21 10:26 Resp 16 04/07/21 10:26 BP 135/73 04/07/21 10:26 Pulse Ox 97 04/07/21 10:26 Weight - Most Recent: 92.351 kg I&O - Last 24 Hours: Intake & Output 04/06/21 04/07/21 04/07/21 22:59 06:59 14:59 Intake Total 3200 480 2000 Balance 3200 480 2000 Med Orders - Current: Current Medications Acetaminophen (Acetaminophen 325 Mg Tab) 650 mg PO Q4H PRN PRN Reason: Pain (Mild 1-3)/fever Hydrocodone Bitart/Acetaminophen (Acetaminophen/Hydrocodone 325-5 Mg Tab) 2 tab PO Q4H PRN PRN Reason: Pain (moderate 4-6) Last Admin: 04/07/21 11:42 Dose: 2 tab Documented by: Amlodipine Besylate (Amlodipine 5 Mg Tab) 10 mg PO BEDTIME [facility] Last Admin: 04/06/21 20:33 Dose: 10 mg Documented by: Amphetamine/Dextroamphetamine (Amphetamine/Dextroamphetamine Salts 10 Mg Tab) 20 mg PO BIDDIURETIC [facility] Last Admin: 04/07/21 09:00 Dose: 20 mg Documented by: Ampicillin (Ampicillin 500 Mg Cap) 500 mg PO QID [facility] Stop: 04/07/21 22:01 Last Admin: 04/07/21 09:01 Dose: 500 mg Documented by: Cyanocobalamin (Cyanocobalamin (Vitamin B12) 1,000 Mcg Tab) 5,000 mcg PO DAILY [facility] Last Admin: 04/07/21 08:59 Dose: 5,000 mcg Documented by: Enoxaparin Sodium (Enoxaparin 40 Mg/0.4 Ml Syringe) 40 mg SUBCUT Q24H [facility] Last Admin: 04/06/21 16:39 Dose: 40 mg Documented by: Eszopiclone (Eszopiclone 1 Mg Tab) 3 mg PO BEDTIME [facility] Last Admin: 04/06/21 20:40 Dose: 3 mg Documented by: Losartan Potassium (Losartan 50 Mg Tab) 100 mg PO DAILY [facility] Last Admin: 04/07/21 08:59 Dose: 100 mg Documented by: Nebivolol (Nebivolol 10 Mg Tab) 5 mg PO DAILY [facility] Last Admin: 04/07/21 08:59 Dose: 5 mg Documented by: Ondansetron HCl (Ondansetron 4 Mg/2 Ml Sdv) 4 mg IV Q4H PRN PRN Reason: Nausea/Vomiting Last Admin: 04/05/21 16:32 Dose: 4 mg Documented by: Polyethylene Glycol (Polyethylene Glycol 3350 Powder 17 Gm Packet) 17 gm PO DAILY PRN PRN Reason: Constipation Last Admin: 04/06/21 08:19 Dose: 17 gm Documented by: Pramipexole Dihydrochloride (Pramipexole 0.5 Mg Tab) 0.5 mg PO BEDTIME [facility] Last Admin: 04/06/21 20:34 Dose: 0.5 mg Documented by: Sodium Chloride (Sodium Chloride 0.9% 10 Ml Syringe) 10 ml FLUSH ASDIRECTED PRN PRN Reason: Keep Vein Open Thyroid (Thyroid 30 Mg Tab) 45 mg PO ACBREAKFAST [facility] Last Admin: 04/07/21 08:59 Dose: 45 mg Documented by: Trazodone HCl (Trazodone 50 Mg Tab) 150 mg PO BEDTIME [facility] Last Admin: 04/06/21 20:32 Dose: 150 mg Documented by: Venlafaxine HCl (Venlafaxine 75 Mg Tab) 93.75 mg PO BID [facility] Last Admin: 04/07/21 09:00 Dose: 93.75 mg Documented by: Discontinued Medications Fentanyl (Fentanyl 100 Mcg/2 Ml Sdv) 50 mcg IVPUSH ONETIME ONE Stop: 04/03/21 13:24 Last Admin: 04/03/21 13:28 Dose: 50 mcg Documented by: Fentanyl (Fentanyl 100 Mcg/2 Ml Sdv) 50 mcg IVPUSH ONETIME ONE Stop: 04/03/21 15:20 Last Admin: 04/03/21 15:26 Dose: 50 mcg Documented by: Ceftriaxone Sodium 1 gm/ (Sodium Chloride) 50 mls @ 100 mls/hr IV ONETIME ONE Stop: 04/03/21 14:59 Last Admin: 04/03/21 14:27 Dose: 100 mls/hr Documented by: Sodium Chloride (Normal Saline) 1,000 mls @ 125 mls/hr IV ASDIRECTED [facility] Last Admin: 04/04/21 11:33 Dose: 125 mls/hr Documented by: Ceftriaxone Sodium 1 gm/ (Sodium Chloride) 50 mls @ 100 mls/hr IV Q24H [facility] Last Admin: 04/04/21 14:49 Dose: 100 mls/hr Documented by: Ceftriaxone Sodium 1 gm/ (Sodium Chloride) 50 mls @ 100 mls/hr IV Q24H [facility] Stop: 04/05/21 14:29 Last Admin: 04/05/21 13:42 Dose: 100 mls/hr Documented by: - Exam General: Alert, Oriented, Cooperative, No Acute Distress Lungs: Normal Respiratory Effort GI/Abdominal Exam: Soft, No Distention Extremities: Other (left arm in a sling ) Skin: Warm, Dry Psy/Mental Status: Alert, Normal Affect - Patient Data Result Diagrams: 04/05/21 04:10 04/05/21 04:10 Sepsis Event Note - Evaluation Sepsis Screening Result: No Definite Risk - Focused Exam Vital Signs: Vital Signs Temp Pulse Pulse Resp BP BP Pulse Ox 04/07/21 10:26 35.6 C L 95 16 135/73 97 04/07/21 08:59 78 117/53 L 04/07/21 07:38 35.7 C L 78 16 117/53 L 95 04/07/21 03:25 35.9 C L 84 16 124/62 95 - Problem List Review Problem List Initiated/Reviewed/Updated: Yes - Plan Plan:: ASSESSMENT AND PLAN GENERALIZED WEAKNESS-secondary to immobility associated with her recent humerus fracture. She has improved since admission, now able to walk short distances but still quite impaired. -Planning require jail placement for restorative physical therapy and Occupational Therapy -Physical therapy consult -Saline lock IV URINARY TRACT INFECTION-Culture grew out pansensitive E. coli. -Begin ampicillin today 500 mg 4 times daily, for 2 days (ending today) HISTORY OF SCHIZOPHRENIA-she has been struggling with paranoid ideation but has not had significant behavioral issues. -Continue outpatient medications LEFT HUMERUS FRACTURE-being treated nonoperatively. -Pain control -Continue outpatient follow-up with orthopedics MAINTENANCE ISSUES -DVT prophylaxis; Lovenox 40 mg subcu daily -GI prophylaxis; continue outpatient PPI therapy -[place] catheter; not indicated -Nutrition; regular diet DISPOSITION-anticipate discharge to the jail for subacute rehab after the hospital stay. Doug Magana MD
[2021-04-07] MEDS: Enoxaparin 40 MG/0.4 ML Syringe SUBCUT SCH (17:33)
[2021-04-07] MEDS: Pramipexole 0.5 MG Tab PO SCH (21:13)
[2021-04-07] MEDS: amLODIPine 5 MG Tab PO SCH (21:14)
[2021-04-07] MEDS: traZODone 50 MG Tab PO SCH (21:16)
[2021-04-08] MEDS: Acetaminophen/HYDROcodone 325-5 MG Tab PO PRN ×3 (04:45→12:58)
[2021-04-08] MEDS: Amphetamine/Dextroamphetamine Salts 10 MG Tab PO SCH ×2 (07:26→12:59)
[2021-04-08] MEDS: Losartan 50 MG Tab PO SCH (08:51)
[2021-04-08] MEDS: Venlafaxine 75 MG Tab PO SCH (08:52)
[2021-04-08] MEDS: Cyanocobalamin (Vitamin B12) 1,000 MCG Tab PO SCH (08:52)
--- NOTE | 2021-04-08 09:26 | PCM.DCSUM1 ---
Discharge Summary - Hospital Course Brief History: 65-year-old female with history of paranoid schizophrenia and recent left humerus fracture being treated nonoperatively who presented with generalized weakness. Work-up in the emergency room revealed a urinary tract infection. She was admitted for physical therapy and fci placement. Diagnosis: Stroke: No - Discharge Data Discharge Date: 04/08/21 Discharge Disposition: DC/Tfer to SNF 03 Condition: Good - Referral to Home Health Primary Care Physician: PCP None - Discharge Diagnosis/Problem(s) (1) Generalized weakness SNOMED Code(s): 57492293 ICD Code: R53.1 - WEAKNESS Status: Acute (2) UTI, Urinary tract infectious disease SNOMED Code(s): 08991841 ICD Code: N39.0 - URINARY TRACT INFECTION, SITE NOT SPECIFIED Status: Acute (3) Closed left humeral fracture SNOMED Code(s): 40908833 ICD Code: S42.302A - UNSP FRACTURE OF SHAFT OF HUMERUS, LEFT ARM, INIT Status: Acute Qualifiers: Encounter type: subsequent encounter Humerus Location: surgical neck (4) Paranoid schizophrenia, chronic condition SNOMED Code(s): 86893563 ICD Code: F20.0 - PARANOID SCHIZOPHRENIA Status: Chronic - Patient Summary/Data Consults: Consultations 04/03/21 16:49 PT Evaluation and Treatment [CONS] Routine Please Evaluate and Treat. PT Reason for Consult: Weakness This query below is only for informational purposes and is not editable. Hospital Course: Arely presented to the emergency room with generalized weakness. She had been struggling at home following a recent left humerus fracture. She had not been very mobile and had been spending most of her time in the chair. Work-up in the emergency room suggested a urinary tract infection but there is no evidence for sepsis. She was initially started on ceftriaxone. She was admitted to the hospital for physical therapy and additional management. Her urine culture did grow out a pansensitive E. coli and she was transitioned to amoxicillin. She completed treatment during the course of the hospital stay. She has worked with physical therapy and has made some gains but remains quite weak. Mobility is further limited by her inability to use a walker because of the left humerus fracture that is being treated nonoperatively. Her pain has been adequately controlled. I have been no significant behavior issues or acute issues during the course of the hospital stay. She is stable and safe for discharge to the fci at this time. She would benefit from physical and occupational therapy with the goal of returning either to independent living or potentially assisted living. - Patient Instructions Diet: Regular Diet as Tolerated Activity: As Tolerated Activity, Other: Immobilize left arm with sling Showering/Bathing: May Shower Other/Special Instructions: 1. You were in the hospital for management of generalized weakness as well as a urinary tract infection. Your condition has been improving with treatment for the urinary tract infection and you have completed adequate antibiotic therapy. Because of ongoing weakness I recommend discharge to a half-way facility for subacute rehab. They will also provide additional pain control and physical therapy for the left humerus fracture which is being treated nonoperatively. 2. Referral to physical and oc cupational therapy for strengthening of the setting of recent generalized weakness as well as a left humerus fracture. 3. Code status - FULL CODE - Discharge Plan *PRESCRIPTION DRUG MONITORING PROGRAM REVIEWED*: Not Applicable *COPY OF PRESCRIPTION DRUG MONITORING REPORT IN PATIENT MIN: Not Applicable Prescriptions/Med Rec: Amphetamine/Dextroamphetamine [Adderall] 20 mg PO BID #60 Hydrocodone/Acetaminophen [Hydrocodon-Acetaminophen 5-325] 2 each PO Q4H PRN #60 tablet PRN Reason: Pain Eszopiclone [Lunesta] 3 mg PO BEDTIME #30 Home Medications: Home Meds Thyroid [Earth Thyroid] 45 mg PO DAILY 08/09/17 [History] Losartan Potassium 100 mg PO DAILY 06/25/20 [History] Nebivolol [Bystolic] 5 mg PO DAILY 06/25/20 [History] Venlafaxine [Effexor] 100 mg PO BID 06/25/20 [History] amLODIPine Besylate [Amlodipine Besylate] 10 mg PO BEDTIME 06/25/20 [History] Magnesium Amino Acid Chelate [Magnesium] 100 mg PO BEDTIME 10/15/20 [History] Multivitamin 1 each PO DAILY 10/15/20 [History] [place]-3/DHA/Epa/Fish Oil [[place]udley 3 500 Softgel] 1,000 mg PO DAILY 10/15/20 [History] Ubidecarenone [Co Q-10] 200 mg PO DAILY 10/15/20 [History] traZODone 150 mg PO BEDTIME 03/23/21 [History] Calcium Citrate/Vitamin D3 [Calcium Citrate - Vit D Caplet] 1 each PO DAILY 04/01/21 [History] Cyanocobalamin/Cobamamide [B-12 5,000 MCG Sublingual] 5,000 mcg PO DAILY 04/03/21 [History] Iron,Carbonyl/Ascorbic Acid [Iron 100-Vitamin C Tablet] 1 tab PO DAILY 04/03/21 [History] Mv-Mn/Iron/Folic Acid/Herb 190 [Vitamin D3 Complete Caplet] 1 tab PO DAILY 04/03/21 [History] Omeprazole 1 tab PO DAILY 04/03/21 [History] Ondansetron [Zofran ODT] 1 tab PO Q8H PRN 04/03/21 [History] Potassium Gluconate 1 tab PO DAILY 04/03/21 [History] Pramipexole [Mirapex] 0.5 mg PO BEDTIME 04/03/21 [History] Promethazine [Phenergan] 25 mg PO Q6H PRN 04/03/21 [History] Selenium 1 tab PO DAILY 04/03/21 [History] Sennosides/Docusate Sodium [Stimulant Laxative Plus Tablet] 1 tab PO BID PRN 04/03/21 [History] Hydrocodone/Acetaminophen [Hydrocodon-Acetaminophen 5-325] 2 each PO Q4H PRN #60 tablet 04/07/21 [Rx] Amphetamine/Dextroamphetamine [Adderall] 20 mg PO BID #60 04/08/21 [Rx] Eszopiclone [Lunesta] 3 mg PO BEDTIME #30 04/08/21 [Rx] Oxygen Therapy Mode: Room Air Patient Handouts: Urinary Tract Infection, Adult, [id number] Referrals: Yessy Bishop DO [Physician] - 04/23/21 11:20 am (Please arrive 15 minutes early to register for your appointment.) - Discharge Summary/Plan Comment DC Time >30 min.: Yes (40-fci discharge) - Patient Data Vitals - Most Recent: Last Vital Signs Temp 35.7 C L 04/08/21 07:21 Pulse 87 04/08/21 08:52 Resp 18 04/08/21 07:21 BP 123/65 04/08/21 08:52 Pulse Ox 95 04/08/21 07:21 Weight - Most Recent: 92.351 kg I&O - Last 24 hours: Intake & Output 04/07/21 04/08/2121 22:59 06:59 14:59 Intake Total 600 240 Balance 600 240 Med Orders - Current: Current Medications Acetaminophen (Acetaminophen 325 Mg Tab) 650 mg PO Q4H PRN PRN Reason: Pain (Mild 1-3)/fever Hydrocodone Bitart/Acetaminophen (Acetaminophen/Hydrocodone 325-5 Mg Tab) 2 tab PO Q4H PRN PRN Reason: Pain (moderate 4-6) Last Admin: 04/08/21 08:51 Dose: 2 tab Documented by: Amlodipine Besylate (Amlodipine 5 Mg Tab) 10 mg PO BEDTIME [facility] Last Admin: 04/07/21 21:14 Dose: 10 mg Documented by: Amphetamine/Dextroamphetamine (Amphetamine/Dextroamphetamine Salts 10 Mg Tab) 20 mg PO BIDDIURETIC [facility] Last Admin: 04/08/21 07:26 Dose: 20 mg Documented by: Cyanocobalamin (Cyanocobalamin (Vitamin B12) 1,000 Mcg Tab) 5,000 mcg PO DAILY [facility] Last Admin: 04/08/21 08:52 Dose: 5,000 mcg Documented by: Enoxaparin Sodium (Enoxaparin 40 Mg/0.4 Ml Syringe) 40 mg SUBCUT Q24H [facility] Last Admin: 04/07/21 17:33 Dose: 40 mg Documented by: Eszopiclone (Eszopiclone 1 Mg Tab) 3 mg PO BEDTIME [facility] Last Admin: 04/07/21 21:21 Dose: 3 mg Documented by: Losartan Potassium (Losartan 50 Mg Tab) 100 mg PO DAILY [facility] Last Admin: 04/08/21 08:51 Dose: 100 mg Documented by: Nebivolol (Nebivolol 10 Mg Tab) 5 mg PO DAILY [facility] Last Admin: 04/08/21 08:52 Dose: 5 mg Documented by: Ondansetron HCl (Ondansetron 4 Mg/2 Ml Sdv) 4 mg IV Q4H PRN PRN Reason: Nausea/Vomiting Last Admin: 04/05/21 16:32 Dose: 4 mg Documented by: Polyethylene Glycol (Polyethylene Glycol 3350 Powder 17 Gm Packet) 17 gm PO DAILY PRN PRN Reason: Constipation Last Admin: 04/06/21 08:19 Dose: 17 gm Documented by: Pramipexole Dihydrochloride (Pramipexole 0.5 Mg Tab) 0.5 mg PO BEDTIME [facility] Last Admin: 04/07/21 21:13 Dose: 0.5 mg Documented by: Sodium Chloride (Sodium Chloride 0.9% 10 Ml Syringe) 10 ml FLUSH ASDIRECTED PRN PRN Reason: Keep Vein Open Thyroid (Thyroid 30 Mg Tab) 45 mg PO ACBREAKFAST [facility] Last Admin: 04/08/21 07:26 Dose: 45 mg Documented by: Trazodone HCl (Trazodone 50 Mg Tab) 150 mg PO BEDTIME [facility] Last Admin: 04/07/21 21:16 Dose: 150 mg Documented by: Venlafaxine HCl (Venlafaxine 75 Mg Tab) 93.75 mg PO BID [facility] Last Admin: 04/08/21 08:52 Dose: 93.75 mg Documented by: Discontinued Medications Ampicillin (Ampicillin 500 Mg Cap) 500 mg PO QID [facility] Stop: 04/07/21 22:01 Last Admin: 04/07/21 21:16 Dose: 500 mg Documented by: Fentanyl (Fentanyl 100 Mcg/2 Ml Sdv) 50 mcg IVPUSH ONETIME ONE Stop: 04/03/21 13:24 Last Admin: 04/03/21 13:28 Dose: 50 mcg Documented by: Fentanyl (Fentanyl 100 Mcg/2 Ml Sdv) 50 mcg IVPUSH ONETIME ONE Stop: 04/03/21 15:20 Last Admin: 04/03/21 15:26 Dose: 50 mcg Documented by: Ceftriaxone Sodium 1 gm/ (Sodium Chloride) 50 mls @ 100 mls/hr IV ONETIME ONE Stop: 04/03/21 14:59 Last Admin: 04/03/21 14:27 Dose: 100 mls/hr Documented by: Sodium Chloride (Normal Saline) 1,000 mls @ 125 mls/hr IV ASDIRECTED [facility] Last Admin: 04/04/21 11:33 Dose: 125 mls/hr Documented by: Ceftriaxone Sodium 1 gm/ (Sodium Chloride) 50 mls @ 100 mls/hr IV Q24H [facility] Last Admin: 04/04/21 14:49 Dose: 100 mls/hr Documented by: Ceftriaxone Sodium 1 gm/ (Sodium Chloride) 50 mls @ 100 mls/hr IV Q24H [facility] Stop: 04/05/21 14:29 Last Admin: 04/05/21 13:42 Dose: 100 mls/hr Documented by:
[2021-04-08 11:37] VITALS: BP 124/69; PULSE 78
== END 2021-04-08 13:15 | DRG 690 ==
LOC: JP.ED 12:06 → JP.MS 13:54
PROVIDERS: ADMIT Hospitalist; ATTEND Internal Medicine
DX: N39.0 Urinary tract infection, site not specified (principal); R53.1 Weakness; S42.212D Unspecified displaced fracture of surgical neck of left humerus, subsequent encounter for fracture with routine healing; X58.XXXD Exposure to other specified factors, subsequent encounter; F20.0 Paranoid schizophrenia; G47.30 Sleep apnea, unspecified; Z20.822 Contact with and (suspected) exposure to COVID-19; K52.9 Noninfective gastroenteritis and colitis, unspecified; G89.29 Other chronic pain; M54.9 Dorsalgia, unspecified; I10 Essential (primary) hypertension; H54.7 Unspecified visual loss; F20.9 Schizophrenia, unspecified; G47.33 Obstructive sleep apnea (adult) (pediatric); E66.9 Obesity, unspecified; E55.9 Vitamin D deficiency, unspecified; E53.8 Deficiency of other specified B group vitamins; Z87.440 Personal history of urinary (tract) infections; Z88.1 Allergy status to other antibiotic agents; Z79.890 Hormone replacement therapy; Z79.899 Other long term (current) drug therapy; K21.9 Gastro-esophageal reflux disease without esophagitis; Z74.9 Problem related to care provider dependency, unspecified; F32.9 Major depressive disorder, single episode, unspecified; F41.9 Anxiety disorder, unspecified; E03.9 Hypothyroidism, unspecified; Z90.49 Acquired absence of other specified parts of digestive tract; Z98.890 Other specified postprocedural states; Z87.81 Personal history of (healed) traumatic fracture
CPT/HCPCS: 36415; 80053; 81001; 82550; 83605; 85025; 87086; 87088; 87186; 96374; 99285; J3010; 80048; 83735; 97116-GP; 97162-GP; 97530-GP; A9270-GY; J0696; J1650; J2405; J7030; U0002

== ENCOUNTER 2021-06-03 15:36 | Emergency (ER) | payer MEDICARE, BC ==
[2021-06-03 16:35] VITALS: BP 139/88; PULSE 103
[2021-06-03] MEDS ORDERED: Sodium Chloride 0.9% 1,000 ML IV SCH (17:00)
--- NOTE | 2021-06-03 17:34 | EDM.PDOC ---
ED HPI GENERAL MEDICAL PROBLEM - General Chief Complaint: General Stated Complaint: WEAKNESS Time Seen by Provider: 06/03/21 15:55 Source of Information: Reports: Patient, EMS History Limitations: Reports: No Limitations - History of Present Illness INITIAL COMMENTS - FREE TEXT/NARRATIVE: 65-year-old female brought in due to recurring fainting, weakness, and generalized malaise. Today she called the ambulance because she said every time she bends over she "passes out". She did have significantly elevated liver enzymes just 1 week ago in the clinic. She claims she is taking her medications as prescribed except for her pain medication. No fevers or chills. No urinary symptoms. Onset: Unknown/Unsure Duration: Intermittent, Waxing/Waning Location: Reports: Generalized - Related Data Allergies Allergy/AdvReac Type Severity Reaction Status Date / Time cephalexin Allergy Hallucinati Verified 06/03/21 16:01 ons ciprofloxacin AdvReac Nausea Verified 06/03/21 16:01 minocycline AdvReac Abdominal Verified 06/03/21 16:01 Cramps Home Meds: Home Meds Thyroid [[place] Thyroid] 45 mg PO DAILY 08/09/17 [History] Losartan Potassium 100 mg PO DAILY 06/25/20 [History] Nebivolol [Bystolic] 5 mg PO DAILY 06/25/20 [History] Venlafaxine [Effexor] 100 mg PO BID 06/25/20 [History] amLODIPine Besylate [Amlodipine Besylate] 10 mg PO BEDTIME 06/25/20 [History] Magnesium Amino Acid Chelate [Magnesium] 100 mg PO BEDTIME 10/15/20 [History] Multivitamin 1 each PO DAILY 10/15/20 [History] [place]-3/DHA/Epa/Fish Oil [[place] 3 500 Softgel] 1,000 mg PO DAILY 10/15/20 [History] Ubidecarenone [Co Q-10] 200 mg PO DAILY 10/15/20 [History] traZODone 150 mg PO BEDTIME 03/23/21 [History] Calcium Citrate/Vitamin D3 [Calcium Citrate - Vit D Caplet] 1 each PO DAILY 04/01/21 [History] Cyanocobalamin/Cobamamide [B-12 5,000 MCG Sublingual] 5,000 mcg PO DAILY 04/03/21 [History] Iron,Carbonyl/Ascorbic Acid [Iron 100-Vitamin C Tablet] 1 tab PO DAILY 04/03/21 [History] Mv-Mn/Iron/Folic Acid/Herb 190 [Vitamin D3 Complete Caplet] 1 tab PO DAILY 04/03/21 [History] Omeprazole 1 tab PO DAILY 04/03/21 [History] Ondansetron [Zofran ODT] 1 tab PO Q8H PRN 04/03/21 [History] Potassium Gluconate 1 tab PO DAILY 04/03/21 [History] Pramipexole [Mirapex] 0.5 mg PO BEDTIME 04/03/21 [History] Promethazine [Phenergan] 25 mg PO Q6H PRN 04/03/21 [History] Selenium 1 tab PO DAILY 04/03/21 [History] Sennosides/Docusate Sodium [Stimulant Laxative Plus Tablet] 1 tab PO BID PRN 04/03/21 [History] Hydrocodone/Acetaminophen [Hydrocodon-Acetaminophen 5-325] 2 each PO Q4H PRN #60 tablet 04/07/21 [Rx] Amphetamine/Dextroamphetamine [Adderall] 20 mg PO BID #60 04/08/21 [Rx] Eszopiclone [Lunesta] 3 mg PO BEDTIME #30 04/08/21 [Rx] Past Medical History HEENT History: Reports: Impaired Vision Cardiovascular History: Reports: Hypertension, SOB on Exertion Respiratory History: Reports: Sleep Apnea, Other (See Below) Other Respiratory History: uses cpap hasnt been using it (03/28) Gastrointestinal History: Reports: Chronic Diarrhea, GERD, Other (See Below) Other Gastrointestinal History: ulcers Genitourinary History: Reports: UTI, Recurrent APPLICATION DEVELOPMENT LIAISON History: Reports: None Musculoskeletal History: Reports: Back Pain, Chronic, Fracture Other Musculoskeletal History: L proximal humerus Fx 03/12/21 Neurological History: Reports: None Psychiatric History: Reports: Anxiety, Depression, Psych Hospitalization(s), Schizophrenia Endocrine/Metabolic History: Reports: Hypothyroidism, Obesity/BMI 30+, Vitamin D Deficiency Hematologic History: Reports: B12 Deficiency Immunologic History: Reports: None Oncologic (Cancer) History: Reports: None Dermatologic History: Reports: None - Infectious Disease History Infectious Disease History: Reports: Chicken Pox, Measles, MRSA, Mumps, Novel Coronavirus - Past Surgical History Head Surgeries/Procedures: Reports: None HEENT Surgical History: Reports: None Cardiovascular Surgical History: Reports: None Respiratory Surgical History: Reports: None GI Surgical History: Reports: Bariatric Procedure, Cholecystectomy, Colonoscopy, EGD, Other (See Below) Other GI Surgeries/Procedures: hemorrhoidectomy. 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[facility] 2000 Female Surgical History: Reports: Breast Implant Endocrine Surgical History: Reports: None Neurological Surgical History: Reports: Lumbar Spine Musculoskeletal Surgical History: Reports: Ganglion Cyst, Shoulder Surgery, Other (See Below) Other Musculoskeletal Surgeries/Procedures:: spinal fusion Dermatological Surgical History: Reports: None Social & Family History - Family History Family Medical History: No Pertinent Family History - Tobacco Use Tobacco Use Status *Q: Never Tobacco User - Caffeine Use Caffeine Use: Reports: None - Recreational Drug Use Recreational Drug Use: No ED ROS GENERAL - Review of Systems Review Of Systems: See Below Constitutional: Reports: Malaise, Decreased Appetite. Denies: Fever, Chills HEENT: Denies: Vision Change Respiratory: Reports: Shortness of Breath Cardiovascular: Reports: Palpitations. Denies: Chest Pain GI/Abdominal: Reports: Abdominal Pain, Nausea. Denies: Vomiting : Reports: No Symptoms Musculoskeletal: Reports: Other (Patient has pain everywhere) Skin: Reports: Other (Small excoriations on her face and chest) Neurological: Reports: Dizziness, Tingling, Weakness Psychiatric: Reports: Anxiety ED EXAM, GENERAL - Physical Exam Exam: See Below Free Text/Narrative:: Patient is difficult to examine because even light palpation anywhere causes significant discomfort, findings were out of proportion to true musculoskeletal disease General Appearance: Alert, No Apparent Distress Eye Exam: Bilateral Eye: Normal Inspection (Good hydration, no jaundice) Head: Atraumatic Neck: Other (Diffuse tenderness to palpation) Respiratory/Chest: Lungs Clear Cardiovascular: Regular Rate, Rhythm GI/Abdominal: Soft, Tender Extremities: Pedal Edema (1+ symmetric lower extremity edema), Other (Healing surgical scar on the left anterior shoulder, tenderness to any palpation of the upper extremities) Neurological: Alert, Oriented, No Motor/Sensory Deficits Psychiatric: Anxious Skin Exam: Warm, Dry Course - Vital Signs Last Recorded V/S: Last Vital Signs Temp 97.2 F 06/03/21 16:08 Pulse 103 H 06/03/21 16:34 Resp 16 06/03/21 16:08 BP 139/88 07/27/21 16:34 Pulse Ox 100 06/03/21 16:08 Orthostatic Blood Pressure [ 132/85 Standing] Orthostatic Blood Pressure [ 148/89 Sitting] Orthostatic Blood Pressure [ 150/92 Supine] - Orders/Labs/Meds Labs: Laboratory Tests 06/03/21 06/03/21 06/03/21 Range/Units 17:01 17:10 17:10 WBC 5.1 (4.5-11.0) K/uL RBC 3.99 (3.30-5.50) M/uL Hgb 12.0 D (12.0-15.0) g/dL Hct 35.8 L (36.0-48.0) % MCV 90 (80-98) fL MCH 30 (27-31) pg MCHC 34 (32-36) % Plt Count 307 (150-400) K/uL Neut % (Auto) 44.3 (36-66) % Lymph % (Auto) 33.9 (24-44) % Hughes % (Auto) 14.4 H (2-6) % Eos % (Auto) 6.8 H (2-4) % Baso % (Auto) 0.6 (0-1) % Sodium 137 L (140-148) mmol/L Potassium 4.5 (3.6-5.2) mmol/L Chloride 103 (100-108) mmol/L Carbon Dioxide 27 (21-32) mmol/L Anion Gap 11.5 (5.0-14.0) mmol/L BUN 15 D (7-18) mg/dL Creatinine 0.8 (0.6-1.0) mg/dL Est Cr Clr Drug Dosing 56.45 mL/min Estimated GFR (MDRD) > 60 (>60) Glucose 93 (74-106) mg/dL Calcium 8.5 (8.5-10.1) mg/dL Total Bilirubin 0.3 D (0.2-1.0) mg/dL AST 28 (15-37) U/L ALT 80 H (12-78) U/L Alkaline Phosphatase 143 H (46-116) U/L Total Protein 5.7 L (6.4-8.2) g/dL Albumin 2.4 L (3.4-5.0) g/dL Globulin 3.3 (2.3-3.5) g/dL Albumin/Globulin Ratio 0.7 L (1.2-2.2) Urine Color Yellow (YELLOW) Urine Appearance Clear (CLEAR) Urine pH 7.5 (5.0-8.0) Ur Specific [place]ckett 1.020 (1.008-1.030) Urine Protein Negative (NEGATIVE) mg/dL Urine Glucose (UA) Negative (NEGATIVE) mg/dL Urine Ketones 15 H (NEGATIVE) mg/dL Urine Occult Blood Negative (NEGATIVE) Urine Nitrite Negative (NEGATIVE) Urine Bilirubin Negative (NEGATIVE) Urine Urobilinogen 0.2 (0.2-1.0) EU/dL Ur Leukocyte Esterase Negative (NEGATIVE) Urine RBC Not seen (0-5) Urine WBC Not seen (0-5) Ur Epithelial Cells Not seen Amorphous Sediment Few Urine Bacteria Not seen Urine Mucus Rare Urine Opiates Screen (NEGATIVE) Ur Oxycodone Screen (NEGATIVE) Urine Methadone Screen (NEGATIVE) Ur Propoxyphene Screen (NEGATIVE) Ur Barbiturates Screen (NEGATIVE) Ur Tricyclics Screen (NEGATIVE) Ur Phencyclidine Scrn (NEGATIVE) Ur Amphetamine Screen (NEGATIVE) U Methamphetamines Scrn (NEGATIVE) Urine MDMA Screen (NEGATIVE) U Benzodiazepines Scrn (NEGATIVE) U Cocaine Metab Screen (NEGATIVE) U Marijuana (THC) Screen (NEGATIVE) 06/03/21 Range/Units 18:09 WBC (4.5-11.0) K/uL RBC (3.30-5.50) M/uL Hgb (12.0-15.0) g/dL Hct (36.0-48.0) % MCV (80-98) fL MCH (27-31) pg MCHC (32-36) % Plt Count (150-400) K/uL Neut % (Auto) (36-66) % Lymph % (Auto) (24-44) % Hughes % (Auto) (2-6) % Eos % (Auto) (2-4) % Baso % (Auto) (0-1) % Sodium (140-148) mmol/L Potassium (3.6-5.2) mmol/L Chloride (100-108) mmol/L Carbon Dioxide (21-32) mmol/L Anion Gap (5.0-14.0) mmol/L BUN (7-18) mg/dL Creatinine (0.6-1.0) mg/dL Est Cr Clr Drug Dosing mL/min Estimated GFR (MDRD) (>60) Glucose (74-106) mg/dL Calcium (8.5-10.1) mg/dL Total Bilirubin (0.2-1.0) mg/dL AST (15-37) U/L ALT (12-78) U/L Alkaline Phosphatase (46-116) U/L Total Protein (6.4-8.2) g/dL Albumin (3.4-5.0) g/dL Globulin (2.3-3.5) g/dL Albumin/Globulin Ratio (1.2-2.2) Urine Color (YELLOW) Urine Appearance (CLEAR) Urine pH (5.0-8.0) Ur Specific [place] (1.008-1.030) Urine Protein (NEGATIVE) mg/dL Urine Glucose (UA) (NEGATIVE) mg/dL Urine Ketones (NEGATIVE) mg/dL Urine Occult Blood (NEGATIVE) Urine Nitrite (NEGATIVE) Urine Bilirubin (NEGATIVE) Urine Urobilinogen (0.2-1.0) EU/dL Ur Leukocyte Esterase (NEGATIVE) Urine RBC (0-5) Urine WBC (0-5) Ur Epithelial Cells Amorphous Sediment Urine Bacteria Urine Mucus Urine Opiates Screen Negative (NEGATIVE) Ur Oxycodone Screen Presumptive positive H (NEGATIVE) Urine Methadone Screen Negative (NEGATIVE) Ur Propoxyphene Screen Negative (NEGATIVE) Ur Barbiturates Screen Negative (NEGATIVE) Ur Tricyclics Screen Negative (NEGATIVE) Ur Phencyclidine Scrn Negative (NEGATIVE) Ur Amphetamine Screen Negative (NEGATIVE) U Methamphetamines Scrn Negative (NEGATIVE) Urine MDMA Screen Negative (NEGATIVE) U Benzodiazepines Scrn Negative (NEGATIVE) U Cocaine Metab Screen Negative (NEGATIVE) U Marijuana (THC) Screen Negative (NEGATIVE) Meds: Medications Discontinued Medications Generic Name Dose Route Start Last Admin Trade Name Freq PRN Reason Stop Dose Admin Sodium Chloride 1,000 mls @ 1,000 mls/hr 06/03/21 17:00 06/03/21 17:18 Normal Saline IV 1,000 mls/hr ASDIRECTED [facility] Administration - Re-Assessments/Exams Free Text/Narrative Re-Assessment/Exam: 06/03/21 18:57 Discussed her recent clinic visit with her primary care provider, 5 days ago she had markedly elevated liver enzymes and was advised to go to the emergency room. CBC, CMP was repeated and her kidney function and liver enzymes are now normal. She was given 1 L of normal saline, orthostatics were checked after the fluids and they were also normal. Explained to the patient I really have no reason to hospitalize her at this time Departure - Departure Time of Disposition: 18:55 Disposition: Home, Self-Care 01 Clinical Impression: Dehydration, Dizziness Syncope Qualifiers: Syncope type: unspecified Qualified Code(s): R55 - Syncope and collapse - Discharge Information Instructions: Dizziness, [id number] Referrals: Yessy Bishop DO [Primary Care Provider] - Forms: ED Department Discharge Care Plan Goals: Stay hydrated, continue your medications as prescribed and follow-up as scheduled if needed. Return anytime if worsening or concerns. Sepsis Event Note (ED) - Evaluation Sepsis Screening Result: No Definite Risk - Focused Exam Vital Signs: Vital Signs Temp Pulse Resp BP Pulse Ox 06/03/21 16:34 103 H 139/88 06/03/21 16:08 97.2 F 105 H 16 140/83 100 06/03/21 15:40 97.2 F 105 H 16 140/83 100
== END 2021-06-03 18:54 | disposition home or self-care (01) ==
LOC: JP.ED 15:36
DX: E86.0 Dehydration (principal); R55 Syncope and collapse; I10 Essential (primary) hypertension; K21.9 Gastro-esophageal reflux disease without esophagitis; E03.9 Hypothyroidism, unspecified; E66.9 Obesity, unspecified; Z68.35 Body mass index [BMI] 35.0-35.9, adult; Z88.1 Allergy status to other antibiotic agents; Z79.899 Other long term (current) drug therapy
CPT/HCPCS: 36415; 80053; 80305; 81001; 85025; 99285; J7030